=== PATIENT | male | born 1940 | race Caucasian/White ===

== ENCOUNTER 2017-02-04 13:43 | Inpatient (IN) | payer BC, OTHER ==
[~2017-02-04] VITALS: Ht 180.3 cm; Wt 82.6 kg
[~2017-02-04 13:43] MED LIST: ACET325T53 PO; ASPI81TA31 PO; BETA60OI3 TP; CLON0.1T PO; DILT300C36 PO; DOXY100T2 PO; ENAL20TA70 PO; ENOX40DI SQ; HYDR-3326 PO; HYDR20VI4 IV; ONDA2VIA IV; RASA1TAB PO; SIMV20TA6 PO
[2017-02-04] MEDS ORDERED: NITR50CA PO (14:02)
[2017-02-04] MEDS ORDERED: QUET25TA PO (14:02)
[2017-02-04 14:38] LABS: BASOPHILS % (AUTO) 0.5 % (0.0-2.0); EOSINOPHILS # (AUTO) 0.1 K/uL (0.0-0.7); EOSINOPHILS % (AUTO) 1.7 % (0.0-7.0); HEMATOCRIT 39.8 % (40-50); HEMOGLOBIN 13.3 G/DL (14.0-18.0); LYMPHOCYTES # (AUTO) 1.6 K/UL (0.8-4.8); LYMPHOCYTES % (AUTO) 23.7 % (20.5-51.5); MEAN CORPUSCULAR HEMOGLOBIN 32.4 UUG (27.0-31.0); MEAN CORPUSCULAR HGB CONC 34 g/dL (32.0-37.0); MEAN CORPUSCULAR VOLUME 96.7 FL (82.0-92.0); MONOCYTES # (AUTO) 0.4 K/UL (0.1-1.30); NEUTROPHILS # (AUTO) 4.5 K/UL (1.8-8.9); NEUTROPHILS % (AUTO) 68.1 % (38.5-71.5); PLATELET COUNT (AUTO) 228 K/UL (150-450); RED BLOOD CELL COUNT(AUTO) 4.12 MIL/UL (4.7-6.1); WHITE BLOOD COUNT (AUTO) 6.6 K/UL (4.0-11.2)
[2017-02-04 14:44] LABS: CARBON DIOXIDE 27 mmol/L (21-32); CHLORIDE 107 mmol/L (98-107); CREATININE 1.2 mg/dL (0.6-1.3); GLUCOSE 132 mg/dL (74-106); POTASSIUM 4.3 mmol/L (3.5-5.1); UREA NITROGEN, BLOOD 34 mg/dL (7-18)
[2017-02-04 14:50] LABS: ALANINE AMINOTRANSFERASE 26 U/L (16-63); ALKALINE PHOSPHATASE 84 U/L (50-136); ASPARTATE AMINOTRANSFERASE 23 U/L (15-37); BILIRUBIN,DIRECT 0.1 mg/dL (0.0-0.2); BILIRUBIN,TOTAL 0.4 mg/dL (0.2-1.0); TOTAL PROTEIN, SERUM 7.9 g/dL (6.4-8.2)
[2017-02-04 14:52] LABS: ETHANOL < 3 MG/DL (0-0)
[2017-02-04 15:03] LABS: *BILIRUBIN,URIN NEGATIVE (NEGATIVE); *BLOOD, URINE 3+ (NEGATIVE); *CLARITY,URINE CLOUDY (CLEAR); *KETONES,URINE NEGATIVE (NEGATIVE); *PROTEIN,URINE 1+ (NEGATIVE); *UROBILINOGEN,URINE 0.2 E.U./dl (NORMAL); LEUKOCYTE ESTERASE ,URINE 3+ (NEGATIVE); NITRITE, URINE NEGATIVE (NEGATIVE); PH,URINE 5.5 (5.0-8.0); UGLUCOSE NEGATIVE (NEGATIVE)
[2017-02-04 15:13] LABS: *COLOR,URINE DARK YELLOW (YELLOW)
[2017-02-04 15:14] LABS: MUCUS,URINE MODERATE /LPF (0-FEW); RBC,URINE 20-50 /HPF (0-3); SQUAMOUS EPITHELIAL CELL,UR FEW /HPF (NONE SEEN); WBC,URINE TNTC /HPF (0-3)
[2017-02-04 15:16] LABS: *AMPHETAMINE, URINE NEGATIVE (NEGATIVE); *BARBITURATE, URINE NEGATIVE (NEGATIVE); *CANNABINOID, URINE NEGATIVE (NEGATIVE); *COCCAINE, URINE NEGATIVE (NEGATIVE); *OPIATE, URINE NEGATIVE (NEGATIVE); *PHENCYCLIDINE SCREEN,URINE NEGATIVE (NEGATIVE)
--- NOTE | 2017-02-04 15:20 | NUR ---
CALLED PINKY FOR PET EVAL. ETA 1 HOUR.
[2017-02-04] MEDS ORDERED: CEPHALEXIN MONOHYDRATE 500 MG CAPSULE PO ONE (15:30)
[2017-02-04] MEDS ORDERED: CEPHALEXIN MONOHYDRATE 500 MG CAPSULE ONE (15:34)
--- NOTE | 2017-02-04 16:25 | NUR ---
Pt resting in gurney with NAD noted, psych eval pending.
--- NOTE | 2017-02-04 16:40 | NUR ---
Pinky here for psych eval.
--- NOTE | 2017-02-04 17:07 | NUR ---
Pt placed on 5150 hold (GD) by Joyce.
[2017-02-04] MEDS ORDERED: ATOR10TA PO (17:40)
[2017-02-04] MEDS ORDERED: DILT30TA35 PO (17:40)
--- NOTE | 2017-02-04 17:57 | NUR ---
Pt trans to MHU, NAD noted. Daughter and caregiver with pt.
[2017-02-04 18:05] VITALS: BP 152/75
[2017-02-04] MEDS ORDERED: LORAZEPAM 0.5 MG TABLET PO PRN (18:45)
[2017-02-04] MEDS ORDERED: ACETAMINOPHEN 325 MG TABLET PO PRN (18:45)
[2017-02-04] MEDS ORDERED: MAGNESIUM HYDROXIDE 30 ML LIQUID UDC PO PRN (18:45)
[2017-02-04] MEDS ORDERED: MAG HYDROX/AL HYDROX/SIMETH 30 ML LIQUID UDC PO PRN (18:45)
[2017-02-04 20:29] VITALS: BP 158/88
[2017-02-04] MEDS: LEVOFLOXACIN 500 MG TABLET PO SCH (22:05)
[2017-02-04] MEDS: ATORVASTATIN 10 MG TABLET PO SCH (22:05)
[2017-02-04] MEDS: TEMAZEPAM 7.5 MG CAPSULE PO PRN (22:05)
[2017-02-04] MEDS ORDERED: ATORVASTATIN 10 MG TABLET ONE (22:17)
[2017-02-04] MEDS ORDERED: LEVOFLOXACIN 500 MG TABLET ONE (22:17)
[2017-02-05 07:30] VITALS: BP 155/70
[2017-02-05] MEDS: ASPIRIN 81 MG TAB.CHEW PO SCH (08:53)
[2017-02-05] MEDS: AMLODIPINE 5 MG TABLET PO SCH (15:13)
[2017-02-05 16:54] VITALS: BP 159/86
[2017-02-05] MEDS: ATORVASTATIN 10 MG TABLET PO SCH (20:06)
[2017-02-05] MEDS: LEVOFLOXACIN 500 MG TABLET PO SCH (20:06)
[2017-02-05] MEDS: QUETIAPINE FUMARATE 25 MG TABLET PO SCH (20:07)
[2017-02-05 20:33] VITALS: BP 129/90
--- NOTE | 2017-02-06 07:30 | NUR ---
Sleeping, on moderate high back rest, comfortable
[2017-02-06 07:56] VITALS: BP 154/70
[2017-02-06] MEDS: AMLODIPINE 5 MG TABLET PO SCH (09:03)
[2017-02-06] MEDS: ASPIRIN 81 MG TAB.CHEW PO SCH (09:03)
[2017-02-06] MEDS: QUETIAPINE FUMARATE 25 MG TABLET PO SCH ×2 (09:03→20:08)
[2017-02-06] MEDS: DIVALPROEX SPRINKLE 125 MG CAP.SPRINK PO SCH ×2 (09:03→18:24)
--- NOTE | 2017-02-06 09:58 | NUR ---
UR Note: VALENTE faxed patient's most recent clinicals to YESSENIA Woods at [place] [[phone]; fax: [phone]]. Awaiting authorization.
[2017-02-06] MEDS ORDERED: Z GUARD REMEDY PASTE 57 GM TUBE TOP PRN (11:00)
--- NOTE | 2017-02-06 11:46 | NUR ---
Floor Installation Mechanic: VALENTE submitted Firearms Mental Health Report to [employer] on 02/06
--- NOTE | 2017-02-06 12:30 | NUR ---
Alert, oriented x 3. Assisted with lunch, henrie to consume 90 % of food served.
--- NOTE | 2017-02-06 14:49 | NUR ---
Initial DC Plan: Patient currently resides at home [[address] [place] [address]] with family. He also has a caregiver. SW will follow up with MD, patient, and patient's daughter Vicky [[phone]] to discuss most appropriate discharge plans. SW will form a safe and proper discharge.
[2017-02-06 16:49] VITALS: BP 131/70
--- NOTE | 2017-02-06 18:30 | NUR ---
Incontinence care done. Repositioned comfortably.
[2017-02-06 20:02] VITALS: BP 161/80
[2017-02-06] MEDS: ATORVASTATIN 10 MG TABLET PO SCH (20:08)
[2017-02-06] MEDS: LEVOFLOXACIN 500 MG TABLET PO SCH (20:11)
[2017-02-07 07:30] VITALS: BP 164/78
[2017-02-07] MEDS: DIVALPROEX SPRINKLE 125 MG CAP.SPRINK PO SCH ×2 (08:23→17:39)
[2017-02-07] MEDS: QUETIAPINE FUMARATE 25 MG TABLET PO SCH ×2 (08:23→20:38)
[2017-02-07] MEDS: ASPIRIN 81 MG TAB.CHEW PO SCH (08:23)
[2017-02-07] MEDS: AMLODIPINE 5 MG TABLET PO SCH (08:26)
--- NOTE | 2017-02-07 10:26 | NUR ---
UR Note: VALENTE faxed patient's most recent clinicals to YESSENIA Woods at [facility] [[phone]; fax: [phone]]. Awaiting authorization.
[2017-02-07 15:58] VITALS: BP 144/71
[2017-02-07] MEDS: PATIENT MAY USE OWN MED- MD OK PO SCH (17:47)
[2017-02-07] MEDS: LEVOFLOXACIN 500 MG TABLET PO SCH (20:38)
[2017-02-07] MEDS: ATORVASTATIN 10 MG TABLET PO SCH (20:38)
[2017-02-07 20:39] VITALS: BP 159/79
--- NOTE | 2017-02-08 06:30 | NUR ---
PATIENT ASLEEP IN BED. SLEPT WELL THROUGHOUT THE NIGHT. BED ALARM ON. ALL NEEDS ATTENDED. WILL CONTINUE TO MONITOR.
[2017-02-08 07:30] VITALS: BP 148/81
--- NOTE | 2017-02-08 08:37 | NUR ---
UR Note: VALENTE faxed patient's most recent clinicals to YESSENIA Woods at [facility] [[phone]; fax: [phone]]. Awaiting authorization.
[2017-02-08] MEDS ORDERED: AMLODIPINE 5 MG TABLET PO SCH (09:00)
[2017-02-08] MEDS: ASPIRIN 81 MG TAB.CHEW PO SCH (09:25)
[2017-02-08] MEDS: AMLODIPINE 10 MG TABLET PO SCH (09:25)
[2017-02-08] MEDS: QUETIAPINE FUMARATE 25 MG TABLET PO SCH ×2 (09:25→20:53)
[2017-02-08] MEDS: DIVALPROEX SPRINKLE 125 MG CAP.SPRINK PO SCH ×2 (09:25→17:29)
[2017-02-08] MEDS: PATIENT MAY USE OWN MED- MD OK PO SCH (09:26)
[2017-02-08 15:00] VITALS: BP 129/76
[2017-02-08 20:48] VITALS: BP 147/79
[2017-02-08] MEDS: ATORVASTATIN 10 MG TABLET PO SCH (20:52)
[2017-02-08] MEDS: LEVOFLOXACIN 500 MG TABLET PO SCH (20:53)
--- NOTE | 2017-02-08 22:00 | NUR ---
received to care, lying in bed, restless at times, but pleasant upon approach. compliant with medications and staff direction. as of 2199, he remains awake. no distress noted. will continue to monitor closely.
[2017-02-08] MEDS: TEMAZEPAM 7.5 MG CAPSULE PO PRN (23:51)
--- NOTE | 2017-02-08 23:51 | NUR ---
PRN restoril given for insomnia
--- NOTE | 2017-02-09 00:30 | NUR ---
appears to be asleep. no distress noted.
--- NOTE | 2017-02-09 06:00 | NUR ---
slept 8.5 hours. continues to sleep. no distress noted.
[2017-02-09 07:30] VITALS: BP 142/75
--- NOTE | 2017-02-09 08:19 | NUR ---
DC Note: Patient will be discharged home [[address],[place], [place],[address];[phone]] via private transportation at 12:00pm. VALENTE spoke with patient's daughter, iVcky [[phone]] who stated she will be picking him up today. Patient lives at home with his and 24 hour caregiver. Patient will follow-up with (hr systems analyst). VALENTE spoke with YESSENIA Quiros at [facility] [[phone]] who provided mental health referrals. Patient has an appointment with Dr. Seaman (Psychiatrist) on March 01 at 3:30pm [[address]. [address]. [place], [place]; [phone]]. Patient was also provided a referral for Nasreen Sneed (Therapist) [[phone]].
[2017-02-09 08:39] VITALS: BP 142/75
[2017-02-09] MEDS: DIVALPROEX SPRINKLE 125 MG CAP.SPRINK PO SCH (08:39)
[2017-02-09] MEDS: AMLODIPINE 10 MG TABLET PO SCH (08:39)
[2017-02-09] MEDS: ASPIRIN 81 MG TAB.CHEW PO SCH (08:39)
[2017-02-09] MEDS: QUETIAPINE FUMARATE 25 MG TABLET PO SCH (08:40)
[2017-02-09] MEDS: PATIENT MAY USE OWN MED- MD OK PO SCH (08:41)
--- NOTE | 2017-02-09 10:32 | NUR ---
PSYCH RX: CALLED IN 30 DAY SUPPLY OF PSYCH MEDS TO [facility] ([phone]), SPOKE WITH PHARMACIST.
--- NOTE | 2017-02-09 13:52 | NUR ---
1200 discharge instruction given to the patient manager care regarding medications to continue at home and prescription for psychiatric and medical given. Patient manager care verbalized understanding .1230 Brought patient to parking area per w/c stable condition, denies suicidal and homicidal thoughts.patient went home via private car with a manager care.
== END 2017-02-09 12:30 | disposition home or self-care (01) | DRG 885 ==
LOC: ER 13:43 → GPS 18:19
PROVIDERS: ADMIT Psychiatry & Neurology Psychiatry; ATTEND Internal Medicine
DX: F29 Unspecified psychosis not due to a substance or known physiological condition (principal); F02.81 Dementia in other diseases classified elsewhere, unspecified severity, with behavioral disturbance; G93.40 Encephalopathy, unspecified; G20 Parkinson's disease; N39.0 Urinary tract infection, site not specified; D53.9 Nutritional anemia, unspecified; F03.90 Unspecified dementia, unspecified severity, without behavioral disturbance, psychotic disturbance, mood disturbance, and anxiety; E78.5 Hyperlipidemia, unspecified; Z87.440 Personal history of urinary (tract) infections; Z91.14 Patient's other noncompliance with medication regimen; Z88.2 Allergy status to sulfonamides; I10 Essential (primary) hypertension; F32.9 Major depressive disorder, single episode, unspecified; Z79.899 Other long term (current) drug therapy; R73.03 Prediabetes
CPT/HCPCS: 36415; 70450; 71010; 80307; 84443; 85025; 87086; 93005; 97116; 97530; A4663; C1758; G0480

== ENCOUNTER 2017-04-18 19:05 | Inpatient (IN) | payer BC, OTHER ==
[~2017-04-18] VITALS: Ht 180.3 cm; Wt 90.7 kg
[~2017-04-18 19:05] MED LIST changes: +ATOR10TA PO; -BETA60OI3 TP; -CLON0.1T PO; -DILT300C36 PO; +DILT30TA35 PO; -DOXY100T2 PO; -ENOX40DI SQ; -HYDR-3326 PO; -HYDR20VI4 IV; +NITR50CA PO; -ONDA2VIA IV; -SIMV20TA6 PO
[2017-04-18 20:19] LABS: BASOPHILS % (AUTO) 0.6 % (0.0-2.0); EOSINOPHILS # (AUTO) 0.2 K/uL (0.0-0.7); EOSINOPHILS % (AUTO) 2.5 % (0.0-7.0); HEMATOCRIT 38.3 % (36.7-47.1); HEMOGLOBIN 12.8 g/dL (12.5-16.3); LYMPHOCYTES # (AUTO) 1.9 K/uL (20.0-40.0); MEAN CORPUSCULAR HEMOGLOBIN 32.7 uug (23.8-33.4); MEAN CORPUSCULAR HGB CONC 34 g/dL (32.5-36.3); MEAN CORPUSCULAR VOLUME 97.5 fL (73.0-96.2); MONOCYTES # (AUTO) 0.7 K/uL (2.0-10.0); MONOCYTES % (AUTO) 9.1 % (0.0-11.0); NEUTROPHILS # (AUTO) 4.5 K/uL (1.8-8.9); NEUTROPHILS % (AUTO) 61.8 % (38.5-71.5); PLATELET COUNT (AUTO) 203 K/uL (152-348); RED BLOOD CELL COUNT(AUTO) 3.93 MIL/uL (4.06-5.63); WHITE BLOOD COUNT (AUTO) 7.4 K/uL (3.6-10.2)
--- NOTE | 2017-04-18 20:20 | NUR ---
CHEST XRAY COMPLETED
[2017-04-18 20:35] LABS: ALANINE AMINOTRANSFERASE 30 U/L (16-63); ALKALINE PHOSPHATASE 93 U/L (50-136); ASPARTATE AMINOTRANSFERASE 19 U/L (15-37); BILIRUBIN,DIRECT < 0.1 mg/dL (0.0-0.2); BILIRUBIN,TOTAL 0.2 mg/dL (0.2-1.0); CARBON DIOXIDE 25 mmol/L (21-32); CHLORIDE 105 mmol/L (98-107); CREATININE 1.4 mg/dL (0.6-1.3); GLUCOSE 114 mg/dL (74-106); POTASSIUM 5.3 mmol/L (3.5-5.1); TOTAL PROTEIN, SERUM 7.8 g/dL (6.4-8.2); UREA NITROGEN, BLOOD 39 mg/dL (7-18)
--- NOTE | 2017-04-18 20:38 | NUR ---
CT NEGATIVE FOR CODE STROKE
[2017-04-18 20:47] LABS: CHOLESTEROL 186 mg/dL (<200); TRIGLYCERIDES 93 MG/DL (30-150)
[2017-04-18 20:48] LABS: HDL CHOLESTEROL 60 mg/dL (40-60)
[2017-04-18] MEDS ORDERED: CLONIDINE HCL 0.1 MG TABLET PO ONE (22:00)
[2017-04-18] MEDS: ASPIRIN EC 81 MG TABLET.DR PO SCH (22:28)
[2017-04-18] MEDS ORDERED: CLONIDINE HCL 0.1 MG TABLET ONE (22:43)
[2017-04-18] MEDS ORDERED: ASPIRIN EC 81 MG TABLET.DR PO ONE (22:43)
[2017-04-18] MEDS ORDERED: RASA1TAB4 PO (23:29)
[2017-04-18] MEDS ORDERED: DIVA125T3 PO (23:29)
[2017-04-18] MEDS ORDERED: ASPI81TA31 PO (23:29)
[2017-04-18] MEDS ORDERED: ENAL20TA PO (23:29)
[2017-04-18] MEDS ORDERED: ATOR10TA PO (23:29)
--- NOTE | 2017-04-18 23:30 | NUR ---
CAREGIVER PROVIDED PT CONTACT OF PT'S DAUGHTER: ARNOLD MELENDEZ [phone]
--- NOTE | 2017-04-19 01:00 | NUR ---
PT RESTING IN A POSITION OF COMFORT. NO ACUTE DISTRESS NOTED AT THIS TIME
--- NOTE | 2017-04-19 02:20 | NUR ---
Note kanu in ED - 04/19/17 at 0253 by ONUR PT TAKEN UPSTAIRS TO TELE. PER SOFTWARE SALES MANAGER, PT IS UNABLE TO BE ACCOMODATED IN ROOM 201B DUE TO CURRENT ISOLATION STATUS OF ROOMMATE. PER INPATIENT CHARGE NURSE INSTRUCTIONS, PT RETURNED TO ER ROOM 1B UNDER SUPERVISION OF ER STAFF. MACHINE STRAP BUCKLER NOTED. GRIEVANCE MADE BY FAMILY, AND REQUEST FOLLOW UP DUE TO "UNPROFESSIONAL BEHAVIOR OF INPATIENT STAFF."
--- NOTE | 2017-04-19 02:30 | NUR ---
PATIENT ADMITTED TO ROOM 201B,PATIENT ALERT,ABLE TO ANSWER QUESTIONS APPROPRIATELY,SPEECH IS SLURRED, PATIENT EXPLAINED DUE TO PARKINSON,NURSING SWALLOW SCREEN DONE, PATIENT ABLE TO SWALLOW WATER SLOWLY,ASPIRATION PRECAUTION, KEEP NPO PER MD ORDERS.
--- NOTE | 2017-04-19 02:54 | NUR ---
PT TAKEN UPSTAIRS TO TELE. PER HAZMAT TANKER DRIVER, PT IS UNABLE TO BE ACCOMODATED IN ROOM 201B DUE TO CURRENT ISOLATION STATUS OF ROOMMATE. PER INPATIENT CHARGE NURSE INSTRUCTIONS, PT RETURNED TO ER ROOM 1B UNDER SUPERVISION OF ER STAFF. COMMANDER INTERNAL AFFAIRS NOTED.
[2017-04-19 04:00] VITALS: BP 154/55
[2017-04-19] MEDS ORDERED: Z GUARD REMEDY PASTE 57 GM TUBE TOP PRN (04:15)
--- NOTE | 2017-04-19 06:00 | NUR ---
patient sleeping no acute change in condition, sinus bradycardia on monitor,npo for st eval this am, fall precautions bed alarm on.
[2017-04-19 07:27] LABS: BASOPHILS % (AUTO) 0.8 % (0.0-2.0); EOSINOPHILS # (AUTO) 0.2 K/uL (0.0-0.7); EOSINOPHILS % (AUTO) 3.4 % (0.0-7.0); HEMATOCRIT 35.3 % (36.7-47.1); HEMOGLOBIN 11.8 g/dL (12.5-16.3); LYMPHOCYTES # (AUTO) 1.3 K/uL (20.0-40.0); LYMPHOCYTES % (AUTO) 24.8 % (20.5-51.5); MEAN CORPUSCULAR HEMOGLOBIN 32.3 uug (23.8-33.4); MEAN CORPUSCULAR HGB CONC 34 g/dL (32.5-36.3); MEAN CORPUSCULAR VOLUME 96.3 fL (73.0-96.2); MONOCYTES # (AUTO) 0.5 K/uL (2.0-10.0); MONOCYTES % (AUTO) 8.9 % (0.0-11.0); NEUTROPHILS # (AUTO) 3.3 K/uL (1.8-8.9); NEUTROPHILS % (AUTO) 62.1 % (38.5-71.5); PLATELET COUNT (AUTO) 208 K/uL (152-348); RED BLOOD CELL COUNT(AUTO) 3.66 MIL/uL (4.06-5.63)
[2017-04-19 07:33] LABS: CARBON DIOXIDE 27 mmol/L (21-32); CHLORIDE 107 mmol/L (98-107); CHOLESTEROL 161 mg/dL (<200); CREATININE 1.1 mg/dL (0.6-1.3); GLUCOSE 99 mg/dL (74-106); HDL CHOLESTEROL 60 mg/dL (40-60); POTASSIUM 4.4 mmol/L (3.5-5.1); TRIGLYCERIDES 47 MG/DL (30-150); UREA NITROGEN, BLOOD 32 mg/dL (7-18)
--- NOTE | 2017-04-19 07:39 | NUR ---
patient sleeping no acute change in condition, sinus bradycardia on monitor,npo for st eval this am, fall precautions bed alarm on.call light with in reach
[2017-04-19 07:43] LABS: WHITE BLOOD COUNT (AUTO) 5.4 K/uL (3.6-10.2)
[2017-04-19] MEDS: DIVALPROEX 125 MG TABLET.DR PO SCH (08:52)
[2017-04-19] MEDS: ASPIRIN EC 81 MG TABLET.DR PO SCH (08:52)
[2017-04-19] MEDS: ENALAPRIL 10 MG TABLET PO SCH (08:53)
[2017-04-19] MEDS ORDERED: Medication Not On Formulary EA (Enalapril Maleate (Vasotec) 20 MG) PO SCH (09:00)
[2017-04-19] MEDS ORDERED: Medication Not On Formulary EA (Rasagiline Mesylate 1 MG) PO SCH (09:00)
[2017-04-19] MEDS ORDERED: DILTIAZEM HCL 30 MG TABLET PO SCH (09:00)
[2017-04-19] MEDS: ASPIRIN 81 MG TAB.CHEW PO SCH (09:00)
[2017-04-19 10:53] VITALS: BP 98/63
--- NOTE | 2017-04-19 13:30 | NUR ---
swallow eval done
[2017-04-19] MEDS ORDERED: DILT300C36 PO (13:44)
--- NOTE | 2017-04-19 14:00 | NUR ---
pt eating lunch at this time by him self no s/s of aspiration noted rn progressive care at bed side.
[2017-04-19] MEDS: DILTIAZEM HCL CD 300 MG CAP.SR.24H PO SCH (14:59)
[2017-04-19 15:11] VITALS: BP 138/48
[2017-04-19] MEDS: RASAGILINE 1 MG PO SCH (15:52)
[2017-04-19] MEDS: CARBIDOPA/LEVODOPA 25-100MG TABLET PO SCH (17:06)
[2017-04-19 19:31] LABS: *BILIRUBIN,URIN NEGATIVE (NEGATIVE); *BLOOD, URINE 2+ (NEGATIVE); *CLARITY,URINE CLOUDY (CLEAR); *COLOR,URINE YELLOW (YELLOW); *KETONES,URINE NEGATIVE (NEGATIVE); *PROTEIN,URINE 1+ (NEGATIVE); *UROBILINOGEN,URINE 0.2 E.U./dl (NORMAL); LEUKOCYTE ESTERASE ,URINE 3+ (NEGATIVE); NITRITE, URINE POSITIVE (NEGATIVE); UGLUCOSE NEGATIVE (NEGATIVE)
[2017-04-19 19:41] LABS: BACTERIA,URINE MANY /HPF (NONE SEEN); SQUAMOUS EPITHELIAL CELL,UR FEW /HPF (NONE SEEN); WBC,URINE 80-100 /HPF (0-3)
--- NOTE | 2017-04-19 20:00 | NUR ---
RECEIVED PATIENT AWAKE IN BED. A/O X4. DENIES PAIN OR DISCOMFORT. NO RESP. DISTRESS NOTED. VSS. H/L INTACT AND PATENT X2, INTACT AND PATENT. CALL LIGHT IN REACH. ALL NEEDS ATTENDED. WILL CONTINUE TO MONITOR.
[2017-04-19 20:34] VITALS: BP 140/59
[2017-04-19] MEDS: ATORVASTATIN 10 MG TABLET PO SCH (20:44)
[2017-04-20 04:19] VITALS: BP_SYST 144; BP_SYST 168; BP_DIAS 70; BP_DIAS 84
--- NOTE | 2017-04-20 06:50 | NUR ---
PATIENT AWAKE IN BED. SLEPT WELL. DENIES PAIN. CALL LIGHT IN REACH. ALL NEEDS ATTENDED. WILL CONTINUE TO MONITOR.
--- NOTE | 2017-04-20 07:57 | NUR ---
PT RECEIVED IN BED SLEEPING.V/S ARE STABLE ,NO C/O PAIN NOTED.CALL LIGHT WITH IN REACH.
[2017-04-20] MEDS: ASPIRIN 81 MG TAB.CHEW PO SCH (08:23)
[2017-04-20] MEDS: DIVALPROEX 125 MG TABLET.DR PO SCH (08:23)
[2017-04-20] MEDS: CARBIDOPA/LEVODOPA 25-100MG TABLET PO SCH ×2 (08:23→16:05)
[2017-04-20] MEDS: ENALAPRIL 10 MG TABLET PO SCH (08:23)
[2017-04-20] MEDS: DILTIAZEM HCL CD 300 MG CAP.SR.24H PO SCH (08:24)
[2017-04-20] MEDS: RASAGILINE 1 MG PO SCH (08:24)
[2017-04-20] MEDS ORDERED: DILTIAZEM HCL CD 300 MG CAP.SR.24H PO SCH (09:00)
[2017-04-20 11:12] VITALS: BP 146/62
[2017-04-20] MEDS: CEFTRIAXONE 1 G in IV DEXTROSE 5% 50 ML IV SCH (11:49)
--- NOTE | 2017-04-20 12:30 | NUR ---
pt eating lunch at this time by him self no s/s of aspiration noted day care home mother at bed side.
[2017-04-20 14:58] VITALS: BP 145/78
[2017-04-20 15:02] VITALS: BP 129/33
--- NOTE | 2017-04-20 18:13 | NUR ---
patient sleeping no acute change in condition, , fall precautions bed alarm on.call light with in reach
[2017-04-20 20:00] VITALS: BP 152/56
--- NOTE | 2017-04-20 20:00 | NUR ---
RECEIVED PATIENT AWAKE IN BED WITH DAUGHTER AT BEDSIDE. PATIENT IS A/O X3. DENIES PAIN OR DISCOMFORT. NO RESP. DISTRESS NOTED. H/L INTACT AND PATENT. BILATERAL DVT PUMPS IN PLACE. BED ALARM ON. CALL LIGHT IN REACH. ALL NEEDS ATTENDED.
[2017-04-20] MEDS: ATORVASTATIN 10 MG TABLET PO SCH (20:05)
[2017-04-21 04:00] VITALS: BP 153/63
--- NOTE | 2017-04-21 06:32 | NUR ---
PATIENT AWAKE IN BED. REPOSITIONED TO SIDE. SLEPT WELL THROUGHOUT THE NIGHT. DENIES PAIN OR DISCOMFORT. BED ALARM ON. CALL LIGHT IN REACH. ALL NEEDS ATTENDED. WILL CONTINUE TO MONITOR AND ASSESS.
[2017-04-21 07:35] LABS: BASOPHILS % (AUTO) 0.7 % (0.0-2.0); EOSINOPHILS # (AUTO) 0.1 K/uL (0.0-0.7); EOSINOPHILS % (AUTO) 2.2 % (0.0-7.0); HEMATOCRIT 36.1 % (36.7-47.1); HEMOGLOBIN 12.3 g/dL (12.5-16.3); LYMPHOCYTES # (AUTO) 1.5 K/uL (20.0-40.0); LYMPHOCYTES % (AUTO) 25.6 % (20.5-51.5); MEAN CORPUSCULAR HEMOGLOBIN 32.5 uug (23.8-33.4); MEAN CORPUSCULAR HGB CONC 34 g/dL (32.5-36.3); MEAN CORPUSCULAR VOLUME 95.8 fL (73.0-96.2); MONOCYTES # (AUTO) 0.5 K/uL (2.0-10.0); MONOCYTES % (AUTO) 8.5 % (0.0-11.0); NEUTROPHILS # (AUTO) 3.6 K/uL (1.8-8.9); PLATELET COUNT (AUTO) 208 K/uL (152-348); RED BLOOD CELL COUNT(AUTO) 3.77 MIL/uL (4.06-5.63); WHITE BLOOD COUNT (AUTO) 5.7 K/uL (3.6-10.2)
[2017-04-21 07:40] LABS: CARBON DIOXIDE 25 mmol/L (21-32); CHLORIDE 104 mmol/L (98-107); CREATININE 1.1 mg/dL (0.6-1.3); GLUCOSE 100 mg/dL (74-106); POTASSIUM 4.2 mmol/L (3.5-5.1); UREA NITROGEN, BLOOD 23 mg/dL (7-18)
[2017-04-21] MEDS: ASPIRIN 81 MG TAB.CHEW PO SCH (09:18)
[2017-04-21] MEDS: DILTIAZEM HCL CD 300 MG CAP.SR.24H PO SCH (09:19)
[2017-04-21] MEDS: DIVALPROEX 125 MG TABLET.DR PO SCH (09:19)
[2017-04-21] MEDS: CARBIDOPA/LEVODOPA 25-100MG TABLET PO SCH ×2 (09:19→16:50)
[2017-04-21] MEDS: ENALAPRIL 10 MG TABLET PO SCH (09:19)
[2017-04-21] MEDS: RASAGILINE 1 MG PO SCH (09:33)
[2017-04-21] MEDS: CEFTRIAXONE 1 G in IV DEXTROSE 5% 50 ML IV SCH (11:14)
[2017-04-21 11:30] VITALS: BP 171/67
[2017-04-21 12:19] VITALS: BP 146/63
[2017-04-21 16:18] VITALS: BP 139/64
--- NOTE | 2017-04-21 17:52 | NUR ---
PT IS CALM COOPERATIVE, STABLE VITAL SIGNS. OBSERVED RESTING IN ROOM. PLAN FOR TODAY IS TO D/C.
[2017-04-21] MEDS ORDERED: CARB1TAB21 PO (18:08)
[2017-04-21] MEDS ORDERED: CEPH-570 PO (18:15)
--- NOTE | 2017-04-21 19:40 | NUR ---
PT D/C HOME WITH ALL BELONGINGS, VALUABLES, AND EXITCARE PACKET. IV AND ID BAND REMOVED. PT STABLE TO D/C. PT LEFT VIA UBER.
[2017-04-21 19:44] VITALS: BP 153/69
== END 2017-04-21 19:57 | disposition home or self-care (01) | DRG 69 ==
LOC: ER 19:05 → TELE 04-19 01:38 → MED 04-19 17:30
PROVIDERS: ADMIT Nurse Practitioner Acute Care; ATTEND Internal Medicine
DX: G45.9 Transient cerebral ischemic attack, unspecified (principal); N17.0 Acute kidney failure with tubular necrosis; G93.40 Encephalopathy, unspecified; D68.59 Other primary thrombophilia; N39.0 Urinary tract infection, site not specified; D53.9 Nutritional anemia, unspecified; G90.8 Other disorders of autonomic nervous system; F02.80 Dementia in other diseases classified elsewhere, unspecified severity, without behavioral disturbance, psychotic disturbance, mood disturbance, and anxiety; G31.83 Neurocognitive disorder with Lewy bodies; E78.5 Hyperlipidemia, unspecified; Z79.899 Other long term (current) drug therapy; Z79.82 Long term (current) use of aspirin; Z74.09 Other reduced mobility; Z82.3 Family history of stroke; Z83.3 Family history of diabetes mellitus; I11.9 Hypertensive heart disease without heart failure; I51.9 Heart disease, unspecified
CPT/HCPCS: 36415; 70030-TC; 70450; 71045; 85025; 85730; 87077; 87086; 92610; 93005; 93307; 97116; 97165; 97530; 97535; A4663; J0696; J3490; J7060

== ENCOUNTER 2017-08-03 08:51 | Inpatient (IN) | payer BC, OTHER ==
[~2017-08-03] VITALS: Ht 180.3 cm; Wt 81.6 kg
[~2017-08-03 08:51] MED LIST changes: +CARB1TAB21 PO; +CEPH-570 PO; +DILT300C36 PO; -DILT30TA35 PO; +DIVA125T3 PO; -NITR50CA PO; +RASA1TAB4 PO
[2017-08-03] MEDS ORDERED: IV NORMAL SALINE 1000 ML BAG IV ONE (09:30)
[2017-08-03] MEDS ORDERED: CEFTRIAXONE 1 G in IV DEXTROSE 5% 50 ML IV ONE (09:30)
[2017-08-03] MEDS ORDERED: GENTAMICIN SULFATE INJ 80 MG in IV DEXTROSE 5% 100 ML IV ONE (09:30)
[2017-08-03 09:43] LABS: BASOPHILS % (AUTO) 0.9 % (0.0-2.0); EOSINOPHILS # (AUTO) 0.3 K/uL (0.0-0.7); EOSINOPHILS % (AUTO) 4.8 % (0.0-7.0); HEMOGLOBIN 11.7 g/dL (12.5-16.3); LYMPHOCYTES # (AUTO) 1.1 K/uL (20.0-40.0); LYMPHOCYTES % (AUTO) 20.1 % (20.5-51.5); MEAN CORPUSCULAR HEMOGLOBIN 31.6 uug (23.8-33.4); MEAN CORPUSCULAR HGB CONC 33 g/dL (32.5-36.3); MEAN CORPUSCULAR VOLUME 94.7 fL (73.0-96.2); MONOCYTES # (AUTO) 0.5 K/uL (2.0-10.0); MONOCYTES % (AUTO) 8.6 % (0.0-11.0); NEUTROPHILS # (AUTO) 3.6 K/uL (1.8-8.9); NEUTROPHILS % (AUTO) 65.6 % (38.5-71.5); PLATELET COUNT (AUTO) 206 K/uL (152-348); WHITE BLOOD COUNT (AUTO) 5.5 K/uL (3.6-10.2)
[2017-08-03] MEDS ORDERED: CEFTRIAXONE 1 G VIAL ONE (09:46)
[2017-08-03] MEDS ORDERED: GENTAMICIN SULFATE 80 MG/2 ML VIAL ONE (09:47)
[2017-08-03] MEDS ORDERED: GENTAMICIN SULFATE 20 MG/2 ML VIAL IV ONE (09:47)
[2017-08-03 09:48] LABS: CARBON DIOXIDE 28 mmol/L (21-32); CHLORIDE 107 mmol/L (98-107); CREATININE 1.3 mg/dL (0.6-1.3); GLUCOSE 110 mg/dL (74-106); POTASSIUM 4.5 mmol/L (3.5-5.1); UREA NITROGEN, BLOOD 39 mg/dL (7-18)
[2017-08-03 10:00] LABS: ALANINE AMINOTRANSFERASE 11 U/L (16-63); ALKALINE PHOSPHATASE 86 U/L (50-136); ASPARTATE AMINOTRANSFERASE 18 U/L (15-37); BILIRUBIN,DIRECT 0.1 mg/dL (0.0-0.2); BILIRUBIN,TOTAL 0.5 mg/dL (0.2-1.0); TOTAL PROTEIN, SERUM 7.6 g/dL (6.4-8.2)
[2017-08-03 11:07] LABS: *BILIRUBIN,URIN NEGATIVE (NEGATIVE); *BLOOD, URINE 3+ (NEGATIVE); *CLARITY,URINE CLOUDY (CLEAR); *COLOR,URINE YELLOW (YELLOW); *KETONES,URINE NEGATIVE (NEGATIVE); *PROTEIN,URINE 2+ (NEGATIVE); *UROBILINOGEN,URINE 0.2 E.U./dl (NORMAL); LEUKOCYTE ESTERASE ,URINE 3+ (NEGATIVE); NITRITE, URINE POSITIVE (NEGATIVE); PH,URINE 6.5 (5.0-8.0); UGLUCOSE NEGATIVE (NEGATIVE)
[2017-08-03 11:40] LABS: RBC,URINE 20-50 /HPF (0-3); WBC,URINE TNTC /HPF (0-3)
[2017-08-03 11:42] LABS: BACTERIA,URINE MANY /HPF (NONE SEEN); SQUAMOUS EPITHELIAL CELL,UR NONE SEEN /HPF (NONE SEEN)
[2017-08-03] MEDS ORDERED: ONDANSETRON 4 MG/2 ML VIAL IV PRN (14:00)
[2017-08-03] MEDS ORDERED: ACETAMINOPHEN 650 MG SUPP.RECT RC PRN (14:00)
[2017-08-03] MEDS ORDERED: HYDROCODONE/APAP 5-325MG TABLET PO PRN (14:00)
[2017-08-03 15:05] VITALS: BP 116/59
[2017-08-03] MEDS: IV NS 1000 ML 1,000 ML IV PRN (16:15)
[2017-08-03] MEDS: CARBIDOPA/LEVODOPA 25-100MG TABLET PO SCH (16:43)
[2017-08-03] MEDS: ATORVASTATIN 10 MG TABLET PO SCH (20:48)
[2017-08-03] MEDS: CLOTRIMAZOLE/BETAMET DIPROP CREAM 15 GM TUBE TOP SCH ×2 (20:48→20:49)
[2017-08-03 21:01] VITALS: BP 153/43
[2017-08-04 04:00] VITALS: BP 130/63
[2017-08-04] MEDS: IV NS 1000 ML 1,000 ML IV PRN ×2 (05:12→23:17)
[2017-08-04] MEDS: PANTOPRAZOLE SODIUM 40 MG TABLET.DR PO SCH (06:56)
[2017-08-04 07:05] LABS: CARBON DIOXIDE 25 mmol/L (21-32); CHLORIDE 108 mmol/L (98-107); CHOLESTEROL 146 mg/dL (<200); CREATININE 1.1 mg/dL (0.6-1.3); GLUCOSE 86 mg/dL (74-106); HDL CHOLESTEROL 59 mg/dL (40-60); MAGNESIUM 1.7 mg/dL (1.8-2.4); PHOSPHOROUS 2.5 mg/dL (2.5-4.9); POTASSIUM 4.5 mmol/L (3.5-5.1); TRIGLYCERIDES 44 MG/DL (30-150); UREA NITROGEN, BLOOD 25 mg/dL (7-18)
[2017-08-04 07:17] LABS: HEMATOCRIT 34.2 % (36.7-47.1); HEMOGLOBIN 11.6 g/dL (12.5-16.3); WHITE BLOOD COUNT (AUTO) 5.8 K/uL (3.6-10.2)
[2017-08-04 07:18] LABS: BASOPHILS % (AUTO) 0.6 % (0.0-2.0); EOSINOPHILS # (AUTO) 0.2 K/uL (0.0-0.7); LYMPHOCYTES # (AUTO) 1.3 K/uL (20.0-40.0); LYMPHOCYTES % (AUTO) 22.5 % (20.5-51.5); MEAN CORPUSCULAR HEMOGLOBIN 32.2 uug (23.8-33.4); MEAN CORPUSCULAR HGB CONC 34 g/dL (32.5-36.3); MONOCYTES # (AUTO) 0.5 K/uL (2.0-10.0); NEUTROPHILS # (AUTO) 3.8 K/uL (1.8-8.9); NEUTROPHILS % (AUTO) 64.9 % (38.5-71.5); PLATELET COUNT (AUTO) 195 K/uL (152-348)
[2017-08-04 07:22] LABS: THYROID STIMULATING HORMONE 1.383 mIU/mL (0.358-3.740)
[2017-08-04] MEDS: CLOTRIMAZOLE/BETAMET DIPROP CREAM 15 GM TUBE TOP SCH ×2 (08:17→20:40)
[2017-08-04] MEDS: DIVALPROEX 125 MG TABLET.DR PO SCH (08:18)
[2017-08-04] MEDS: Z GUARD REMEDY PASTE 57 GM TUBE TOP PRN (08:18)
[2017-08-04] MEDS: DILTIAZEM HCL CD 300 MG CAP.SR.24H PO SCH (08:19)
[2017-08-04] MEDS: ACETAMINOPHEN 325 MG TABLET PO PRN (08:19)
[2017-08-04] MEDS: CARBIDOPA/LEVODOPA 25-100MG TABLET PO SCH ×2 (08:19→17:13)
[2017-08-04] MEDS: ASPIRIN 81 MG TAB.CHEW PO SCH (08:19)
[2017-08-04] MEDS: AZILECT 1MG TABLET PO SCH (08:20)
[2017-08-04] MEDS: CEFTRIAXONE 1 G in IV DEXTROSE 5% 50 ML IV SCH (09:23)
[2017-08-04] MEDS ORDERED: MAGNESIUM OXIDE 400 MG TABLET PO ONE (11:15)
[2017-08-04 11:36] VITALS: BP 126/63
[2017-08-04 15:36] VITALS: BP 130/73
[2017-08-04 20:21] VITALS: BP 125/65
[2017-08-04] MEDS: ATORVASTATIN 10 MG TABLET PO SCH (20:39)
[2017-08-05 04:00] VITALS: BP 178/61
[2017-08-05 06:19] LABS: CARBON DIOXIDE 23 mmol/L (21-32); CHLORIDE 106 mmol/L (98-107); CREATININE 1.1 mg/dL (0.6-1.3); GLUCOSE 95 mg/dL (74-106); MAGNESIUM 1.8 mg/dL (1.8-2.4); POTASSIUM 4.4 mmol/L (3.5-5.1); UREA NITROGEN, BLOOD 24 mg/dL (7-18)
[2017-08-05] MEDS: PANTOPRAZOLE SODIUM 40 MG TABLET.DR PO SCH (06:49)
[2017-08-05] MEDS: ASPIRIN 81 MG TAB.CHEW PO SCH (08:00)
[2017-08-05] MEDS: DIVALPROEX 125 MG TABLET.DR PO SCH (08:00)
[2017-08-05] MEDS: CARBIDOPA/LEVODOPA 25-100MG TABLET PO SCH ×2 (08:00→16:33)
[2017-08-05] MEDS: DILTIAZEM HCL CD 300 MG CAP.SR.24H PO SCH (08:01)
[2017-08-05] MEDS: CLOTRIMAZOLE/BETAMET DIPROP CREAM 15 GM TUBE TOP SCH ×2 (08:02→20:31)
[2017-08-05] MEDS: Z GUARD REMEDY PASTE 57 GM TUBE TOP PRN (08:02)
[2017-08-05] MEDS: AZILECT 1MG TABLET PO SCH (08:20)
[2017-08-05] MEDS: CEFTRIAXONE 1 G in IV DEXTROSE 5% 50 ML IV SCH (09:38)
[2017-08-05 11:36] VITALS: BP 181/73
[2017-08-05 12:30] VITALS: BP 117/69
[2017-08-05] MEDS: IV NS 1000 ML 1,000 ML IV PRN (13:45)
[2017-08-05 15:26] VITALS: BP 155/56
[2017-08-05 20:00] VITALS: BP 154/77
[2017-08-05] MEDS: ATORVASTATIN 10 MG TABLET PO SCH (20:26)
[2017-08-05] MEDS: TEMAZEPAM 15 MG CAPSULE PO PRN ×2 (20:27→21:44)
[2017-08-05] MEDS: ACETAMINOPHEN 325 MG TABLET PO PRN (20:27)
[2017-08-06 04:00] VITALS: BP 140/84
[2017-08-06] MEDS: PANTOPRAZOLE SODIUM 40 MG TABLET.DR PO SCH (06:19)
[2017-08-06] MEDS: DILTIAZEM HCL CD 300 MG CAP.SR.24H PO SCH (08:56)
[2017-08-06] MEDS: AZILECT 1MG TABLET PO SCH (08:56)
[2017-08-06] MEDS: ASPIRIN 81 MG TAB.CHEW PO SCH (08:56)
[2017-08-06] MEDS: CARBIDOPA/LEVODOPA 25-100MG TABLET PO SCH ×2 (08:56→17:03)
[2017-08-06] MEDS: DIVALPROEX 125 MG TABLET.DR PO SCH (08:56)
[2017-08-06] MEDS: CEFTRIAXONE 1 G in IV DEXTROSE 5% 50 ML IV SCH (08:57)
[2017-08-06] MEDS: CLOTRIMAZOLE/BETAMET DIPROP CREAM 15 GM TUBE TOP SCH (08:57)
[2017-08-06 09:40] VITALS: BP 176/66
[2017-08-06 11:41] VITALS: BP 163/60
[2017-08-06] MEDS: IV NS 1000 ML 1,000 ML IV PRN (13:09)
[2017-08-06 15:53] VITALS: BP 164/86
== END 2017-08-06 18:20 | disposition home or self-care (01) | DRG 682 ==
LOC: ER 08:51 → MED 13:47
PROVIDERS: ADMIT Internal Medicine; ATTEND Nurse Practitioner Acute Care
DX: N17.0 Acute kidney failure with tubular necrosis (principal); G92 Toxic encephalopathy; G20 Parkinson's disease; D68.59 Other primary thrombophilia; E86.0 Dehydration; N39.0 Urinary tract infection, site not specified; B96.89 Other specified bacterial agents as the cause of diseases classified elsewhere; Z88.2 Allergy status to sulfonamides; Z79.82 Long term (current) use of aspirin; Z86.73 Personal history of transient ischemic attack (TIA), and cerebral infarction without residual deficits; Z83.3 Family history of diabetes mellitus; Z82.3 Family history of stroke; Z99.3 Dependence on wheelchair; D63.8 Anemia in other chronic diseases classified elsewhere; E78.5 Hyperlipidemia, unspecified; R21 Rash and other nonspecific skin eruption; I70.0 Atherosclerosis of aorta; I11.9 Hypertensive heart disease without heart failure; I13.10 Hypertensive heart and chronic kidney disease without heart failure, with stage 1 through stage 4 chronic kidney disease, or unspecified chronic kidney disease; N18.9 Chronic kidney disease, unspecified; R29.810 Facial weakness
CPT/HCPCS: 36415; 70030-TC; 71045; 83605; 83735; 84100; 84443; 85025; 85730; 87040; 87086; 92526; 92610; 93005; 97116; 97165; 97530; A4663; J0696; J1580; J7030; J7040; J7060

== ENCOUNTER 2017-10-30 07:43 | Inpatient (IN) | payer OTHER ==
[~2017-10-30] VITALS: Ht 180.3 cm; Wt 81.6 kg
[~2017-10-30 07:43] MED LIST changes: -ACET325T53 PO; -CEPH-570 PO; -DIVA125T3 PO; +DIVA125T32 PO; -ENAL20TA70 PO
[2017-10-30 08:49] LABS: BASOPHILS % (AUTO) 0.5 % (0.0-2.0); EOSINOPHILS # (AUTO) 0.1 K/uL (0.0-0.7); EOSINOPHILS % (AUTO) 1.7 % (0.0-7.0); HEMATOCRIT 36.5 % (36.7-47.1); HEMOGLOBIN 12.2 g/dL (12.5-16.3); LYMPHOCYTES # (AUTO) 0.5 K/uL (20.0-40.0); MEAN CORPUSCULAR HGB CONC 34 g/dL (32.5-36.3); MEAN CORPUSCULAR VOLUME 95.3 fL (73.0-96.2); MONOCYTES # (AUTO) 0.5 K/uL (2.0-10.0); MONOCYTES % (AUTO) 8.1 % (0.0-11.0); NEUTROPHILS # (AUTO) 5.2 K/uL (1.8-8.9); NEUTROPHILS % (AUTO) 81.7 % (38.5-71.5); PLATELET COUNT (AUTO) 188 K/uL (152-348); RED BLOOD CELL COUNT(AUTO) 3.82 MIL/uL (4.06-5.63); WHITE BLOOD COUNT (AUTO) 6.4 K/uL (3.6-10.2)
[2017-10-30 08:51] LABS: *BILIRUBIN,URIN NEGATIVE (NEGATIVE); *BLOOD, URINE 2+ (NEGATIVE); *CLARITY,URINE CLOUDY (CLEAR); *COLOR,URINE YELLOW (YELLOW); *KETONES,URINE NEGATIVE (NEGATIVE); *PROTEIN,URINE 3+ (NEGATIVE); *UROBILINOGEN,URINE 0.2 E.U./dl (NORMAL); LEUKOCYTE ESTERASE ,URINE 1+ (NEGATIVE); NITRITE, URINE POSITIVE (NEGATIVE); PH,URINE 6.5 (5.0-8.0); UGLUCOSE NEGATIVE (NEGATIVE)
[2017-10-30 08:51] LABS: CARBON DIOXIDE 26 mmol/L (21-32); CHLORIDE 106 mmol/L (98-107); CREATININE 1.5 mg/dL (0.6-1.3); GLUCOSE 105 mg/dL (74-106); POTASSIUM 4.6 mmol/L (3.5-5.1); UREA NITROGEN, BLOOD 40 mg/dL (7-18)
[2017-10-30 08:57] LABS: ALANINE AMINOTRANSFERASE 16 U/L (16-63); ALKALINE PHOSPHATASE 92 U/L (50-136); ASPARTATE AMINOTRANSFERASE 35 U/L (15-37); BILIRUBIN,TOTAL 0.4 mg/dL (0.2-1.0); CREATINE KINASE, TOTAL 446 U/L (39-308)
[2017-10-30 09:04] LABS: BACTERIA,URINE MANY /HPF (NONE SEEN); SQUAMOUS EPITHELIAL CELL,UR FEW /HPF (NONE SEEN)
--- NOTE | 2017-10-30 09:25 | NUR ---
Per pt to be admitted to tele, called tele floor for bed assignment, was told charge nurse is in a meeting and will call back when she returns.
[2017-10-30] MEDS ORDERED: CEFTRIAXONE 1 G in IV DEXTROSE 5% 50 ML IV ONE (09:26)
[2017-10-30] MEDS ORDERED: IV NS 1000 ML 1,000 ML IV ONE (09:30)
--- NOTE | 2017-10-30 09:32 | NUR ---
Patient is now waiting for bed & nurse assignment at this time. 2nd floor pneumatic tester notified.
[2017-10-30] MEDS ORDERED: CEFTRIAXONE 1 G VIAL ONE (09:41)
--- NOTE | 2017-10-30 09:49 | NUR ---
spoke with and pt to be tele. Called tele floor for bed assignment joséian, was told the charge nurse is still in a meeting. Nursing crossing supervisor notified.
--- NOTE | 2017-10-30 09:55 | NUR ---
SBAR report given to LANCE Abdalla via telephone.
[2017-10-30] MEDS ORDERED: QUET25TA PO ×2 (09:57)
[2017-10-30] MEDS ORDERED: ENAL10TA PO (09:57)
[2017-10-30] MEDS ORDERED: CARB-93 PO (10:00)
[2017-10-30] MEDS ORDERED: DIVA125T2 PO (10:00)
--- NOTE | 2017-10-30 10:15 | NUR ---
Calista bobby in [facility] - 10/30/17 at 1041 by YUMIKO Pt trans to [facility] venegas.
--- NOTE | 2017-10-30 10:17 | NUR ---
PT ARRIVED VIA GURNEY FROM THE ER, PT IS CONFUSED, BREATHING EQUALLY, NON RESPONSIVE TO QUESTIONS, CAREGIVER AT THE BED SIDE. TEMP 99.8 WILL NOTIFY MD. IV SITE ON THE LEFT FOREARM 20 GAUGE. CONTINUE TO MONITOR PT.
--- NOTE | 2017-10-30 10:25 | NUR ---
Pt trans to tele, NAD noted.
--- NOTE | 2017-10-30 10:30 | NUR ---
PT TEMPERATURE IS 99.8 AND TRENDING UP PT GIVEN SUPPOSITORY TYLENOL. CONTINUE TO MONITOR PT.
[2017-10-30 10:45] VITALS: BP 158/90
[2017-10-30] MEDS ORDERED: Z GUARD REMEDY PASTE 57 GM TUBE TOP PRN (11:45)
[2017-10-30] MEDS ORDERED: HYDROCODONE/APAP 5-325MG TABLET PO PRN (11:45)
[2017-10-30] MEDS ORDERED: ACETAMINOPHEN 325 MG TABLET PO PRN (11:45)
[2017-10-30] MEDS ORDERED: ACETAMINOPHEN 650 MG SUPP.RECT RC PRN (11:45)
[2017-10-30] MEDS ORDERED: ONDANSETRON 4 MG/2 ML VIAL IV PRN (11:45)
[2017-10-30] MEDS ORDERED: MAGNESIUM HYDROXIDE 30 ML LIQUID UDC PO PRN (11:45)
[2017-10-30] MEDS: IV NS 1000 ML 1,000 ML IV PRN (12:23)
[2017-10-30] MEDS: RASAGILINE 1 MG PO SCH (12:46)
[2017-10-30] MEDS: CARBIDOPA/LEVODOPA 25-100MG TABLET PO SCH ×2 (12:55→16:00)
[2017-10-30] MEDS: CLONIDINE HCL 0.1 MG TABLET PO PRN (15:41)
--- NOTE | 2017-10-30 15:47 | NUR ---
PT TEMPERATURE IS 100.7 AND BP 182/69. MD ANDINO NOTIFIED. DOCTOR ORDERED CLONIDINE 0.1 FOR SBP>160 AND MONITORING.COOLING MEASURES STARTED, ICE UNDER ARM PITS. CONTINUE TO MONITOR PT.
[2017-10-30 15:53] VITALS: BP 182/69
[2017-10-30] MEDS: DIVALPROEX 125 MG TABLET.DR PO SCH (16:00)
--- NOTE | 2017-10-30 18:10 | NUR ---
PT BP 174/69, NOTIFIED, ONE TIME ORDER OF CLONIDINE 0.1 ORDERED.
[2017-10-30] MEDS ORDERED: CLONIDINE HCL 0.1 MG TABLET PO ONE (18:45)
--- NOTE | 2017-10-30 19:30 | NUR ---
Received patient from day shift nurse. No acute distress noted. A/Ox1-2, appears to be confused, able to make some needs known. BP slightly elevated at start of shift. Day shift nurse received order for clonidine & administered to patient. BP currently at 157/81. will continue to monitor BP. Temp currently at 98.9 no fever noted. Pertinent assessment completed. IV NS running at 75cc/hr with no s/s of infiltration or swelling at IV site. Patient on 2L o2 via NC with labored breathing & crackles heard in lungs. On ATB therapy for UTI. Call light within reach. Will continue to monitor through shift.
[2017-10-30] MEDS: QUETIAPINE FUMARATE 25 MG TABLET PO SCH (20:11)
[2017-10-30] MEDS: DOCUSATE SODIUM 250 MG CAPSULE PO SCH (20:12)
[2017-10-30] MEDS: ATORVASTATIN 10 MG TABLET PO SCH (20:12)
[2017-10-30] MEDS: ENOXAPARIN SODIUM 40 MG/0.4 ML DISP.SYRIN SQ SCH (20:13)
[2017-10-30 20:18] VITALS: BP 157/81
[2017-10-31] VITALS (8 sets, daily range): BP systolic 133–185; BP diastolic 50–75
[2017-10-31] MEDS: IV NS 1000 ML 1,000 ML IV PRN (00:43)
--- NOTE | 2017-10-31 06:10 | NUR ---
Patient stable through shift. No acute distress noted. Sinus rhythm with PVC's on the tele monitor with periods of bradycardia. Patient afebrile, no signs of fever noted. BP remained stable currently at 145/63 HR of 65. All needs attended to. Kept clean & dry and changed per diaper soiling. Medications given per MD order. Safety measures implemented. Call light in reach. Will endorse to day shift nurse.
[2017-10-31 06:14] LABS: BASOPHILS % (AUTO) 0.5 % (0.0-2.0); EOSINOPHILS # (AUTO) 0.1 K/uL (0.0-0.7); EOSINOPHILS % (AUTO) 2.2 % (0.0-7.0); HEMATOCRIT 33.9 % (36.7-47.1); HEMOGLOBIN 11.5 g/dL (12.5-16.3); LYMPHOCYTES # (AUTO) 0.9 K/uL (20.0-40.0); LYMPHOCYTES % (AUTO) 14.8 % (20.5-51.5); MEAN CORPUSCULAR HEMOGLOBIN 32.4 uug (23.8-33.4); MEAN CORPUSCULAR HGB CONC 34 g/dL (32.5-36.3); MEAN CORPUSCULAR VOLUME 95.6 fL (73.0-96.2); MONOCYTES # (AUTO) 0.7 K/uL (2.0-10.0); NEUTROPHILS # (AUTO) 4.1 K/uL (1.8-8.9); NEUTROPHILS % (AUTO) 70.5 % (38.5-71.5); PLATELET COUNT (AUTO) 156 K/uL (152-348); RED BLOOD CELL COUNT(AUTO) 3.55 MIL/uL (4.06-5.63); WHITE BLOOD COUNT (AUTO) 5.8 K/uL (3.6-10.2)
[2017-10-31 06:39] LABS: CARBON DIOXIDE 28 mmol/L (21-32); CHLORIDE 106 mmol/L (98-107); CREATININE 1.3 mg/dL (0.6-1.3); GLUCOSE 77 mg/dL (74-106); MAGNESIUM 1.9 mg/dL (1.8-2.4); PHOSPHOROUS 3.2 mg/dL (2.5-4.9); POTASSIUM 4.3 mmol/L (3.5-5.1); UREA NITROGEN, BLOOD 34 mg/dL (7-18)
--- NOTE | 2017-10-31 07:00 | NUR ---
RECEIVED PATIENT ON BED, NO ACUTE DISTRESS NOTED, AAOX2-3. ON O2 @ 2LPM VIA NC, WELL TOLERATED. IV ACCESS ON THE LFA #20 RUNNING NS @75 CC/HR INFUSING WELL. AFEBRILE. PER DIRECTOR OF CARDIAC REHABILITATION PATIENT HAS PERIODS OF SINUS TACHY 130'S AND SINUS JAVAD 40'S, BUT ASYMPTOMATIC. LAST BP 145/63 SC 65. COMFORT MEASURES PROVIDED. WILL CONTINUE TO MONITOR CLOSELY.
[2017-10-31] MEDS: CEFTRIAXONE 1 G in IV DEXTROSE 5% 50 ML IV SCH (08:24)
[2017-10-31] MEDS: DIVALPROEX 125 MG TABLET.DR PO SCH ×2 (08:25→17:17)
[2017-10-31] MEDS: QUETIAPINE FUMARATE 25 MG TABLET PO SCH ×2 (08:25→20:28)
[2017-10-31] MEDS: CARBIDOPA/LEVODOPA 25-100MG TABLET PO SCH ×3 (08:25→17:17)
[2017-10-31] MEDS: ASPIRIN 81 MG TAB.CHEW PO SCH (08:25)
[2017-10-31] MEDS: RASAGILINE 1 MG PO SCH (08:27)
--- NOTE | 2017-10-31 08:30 | NUR ---
PATIENT NOTED W/ ELEVATED BP 185/75 FL 60 THEN 160/[address] ANDINO AWARE.
[2017-10-31] MEDS: AMLODIPINE 2.5 MG TABLET PO SCH (10:13)
--- NOTE | 2017-10-31 19:30 | NUR ---
Received patient from day shift RN. Patient in stable condition at start of shift with no acute distress. Pertinent assessment completed. BP elevated at 185/80, patient asymptomatic. Will reassess BP & monitor. Sinus Rhythm on the Tele monitor LA of 71.On o2 via nc at 2L. No complaints of pain & SOB. Noted with IV NS running at 75cc/hr into Left forearm. IV site is clean, intact, no s/s of infiltration noted. On ATB therapy for UTI. Bed in low position & locked. Call light in reach. Will continue to monitor through shift.
[2017-10-31] MEDS: ENOXAPARIN SODIUM 40 MG/0.4 ML DISP.SYRIN SQ SCH (20:27)
[2017-10-31] MEDS: DOCUSATE SODIUM 250 MG CAPSULE PO SCH (20:28)
[2017-10-31] MEDS: ATORVASTATIN 10 MG TABLET PO SCH (20:28)
--- NOTE | 2017-10-31 21:26 | NUR ---
BP reassessed at 135/60. BP within range. Will monitor closely.
[2017-11-01] MEDS: IV NS 1000 ML 1,000 ML IV PRN (00:57)
[2017-11-01 03:45] VITALS: BP 153/66
[2017-11-01] MEDS: CARBIDOPA/LEVODOPA 25-100MG TABLET PO SCH ×3 (08:13→16:36)
[2017-11-01] MEDS: ASPIRIN 81 MG TAB.CHEW PO SCH (08:13)
[2017-11-01] MEDS: DIVALPROEX 125 MG TABLET.DR PO SCH ×2 (08:13→16:36)
[2017-11-01] MEDS: RASAGILINE 1 MG PO SCH (08:13)
[2017-11-01] MEDS: QUETIAPINE FUMARATE 25 MG TABLET PO SCH (08:13)
[2017-11-01] MEDS: CEFTRIAXONE 1 G in IV DEXTROSE 5% 50 ML IV SCH (08:15)
[2017-11-01] MEDS: AMLODIPINE 2.5 MG TABLET PO SCH (08:16)
[2017-11-01] MEDS ORDERED: NITR100C6 PO (08:44)
--- NOTE | 2017-11-01 09:00 | NUR ---
DISCONTINUED IVF. PATIENT TO BE DISCHARGED TODAY.
[2017-11-01 11:21] VITALS: BP 147/68
[2017-11-01] MEDS: CLONIDINE HCL 0.1 MG TABLET PO PRN (14:59)
[2017-11-01 15:14] VITALS: BP 179/72
--- NOTE | 2017-11-01 18:54 | NUR ---
PT DISCHARGED TO HOME. PT PICKED UP BY AMBULANCE. PT IS ALERT, IN NO DISTRESS. IV ACCESS/ID BAND REMOVED.
== END 2017-11-01 19:05 | disposition home health service (06) | DRG 682 ==
LOC: ER 07:43 → TELE 10:05 → MED 10-31 17:50
PROVIDERS: ADMIT Internal Medicine; ATTEND Internal Medicine
DX: N17.0 Acute kidney failure with tubular necrosis (principal); G92 Toxic encephalopathy; N39.0 Urinary tract infection, site not specified; M62.82 Rhabdomyolysis; E86.0 Dehydration; G31.83 Neurocognitive disorder with Lewy bodies; F02.80 Dementia in other diseases classified elsewhere, unspecified severity, without behavioral disturbance, psychotic disturbance, mood disturbance, and anxiety; Z86.73 Personal history of transient ischemic attack (TIA), and cerebral infarction without residual deficits; Z83.3 Family history of diabetes mellitus; Z82.3 Family history of stroke; E78.5 Hyperlipidemia, unspecified; Z88.2 Allergy status to sulfonamides; D63.8 Anemia in other chronic diseases classified elsewhere; I13.10 Hypertensive heart and chronic kidney disease without heart failure, with stage 1 through stage 4 chronic kidney disease, or unspecified chronic kidney disease; N18.9 Chronic kidney disease, unspecified; Z79.82 Long term (current) use of aspirin
CPT/HCPCS: 36415; 70030-TC; 70450; 71045; 83605; 83735; 84100; 85025; 85610; 93005; A4663; J0696; J1650; J7030; J7060

== ENCOUNTER 2017-12-25 14:29 | Inpatient (IN) | payer OTHER ==
[~2017-12-25] VITALS: Ht 180.3 cm; Wt 83.5 kg
[~2017-12-25 14:29] MED LIST changes: +CARB-93 PO; -CARB1TAB21 PO; -DILT300C36 PO; +DIVA125T2 PO; -DIVA125T32 PO; +ENAL10TA PO; +NITR100C6 PO; +QUET25TA PO; -RASA1TAB4 PO
[2017-12-25] MEDS ORDERED: HYDR25TA4 PO (15:38)
[2017-12-25] MEDS ORDERED: TAMS0.4C34 PO (15:38)
[2017-12-25] MEDS ORDERED: QUET25TA PO (15:38)
[2017-12-25] MEDS ORDERED: RASA1TAB4 PO (15:38)
[2017-12-25] MEDS ORDERED: SIMV20TA6 PO (15:38)
[2017-12-25] MEDS ORDERED: TRIH2TAB3 PO (15:38)
[2017-12-25] MEDS ORDERED: CLON0.1T PO (15:39)
[2017-12-25 15:55] LABS: BASOPHILS % (AUTO) 0.5 % (0.0-2.0); EOSINOPHILS # (AUTO) 0.1 K/uL (0.0-0.7); HEMATOCRIT 38.5 % (36.7-47.1); LYMPHOCYTES # (AUTO) 1.3 K/uL (20.0-40.0); LYMPHOCYTES % (AUTO) 23.9 % (20.5-51.5); MEAN CORPUSCULAR HEMOGLOBIN 32.4 uug (23.8-33.4); MEAN CORPUSCULAR HGB CONC 34 g/dL (32.5-36.3); MEAN CORPUSCULAR VOLUME 96.1 fL (73.0-96.2); MONOCYTES # (AUTO) 0.3 K/uL (2.0-10.0); MONOCYTES % (AUTO) 6.3 % (0.0-11.0); NEUTROPHILS # (AUTO) 3.6 K/uL (1.8-8.9); NEUTROPHILS % (AUTO) 67.3 % (38.5-71.5); PLATELET COUNT (AUTO) 263 K/uL (152-348); RED BLOOD CELL COUNT(AUTO) 4.01 MIL/uL (4.06-5.63); WHITE BLOOD COUNT (AUTO) 5.4 K/uL (3.6-10.2)
[2017-12-25 16:12] LABS: CARBON DIOXIDE 27 mmol/L (21-32); CHLORIDE 102 mmol/L (98-107); CREATININE 1.1 mg/dL (0.6-1.3); GLUCOSE 96 mg/dL (74-106); POTASSIUM 4.2 mmol/L (3.5-5.1); UREA NITROGEN, BLOOD 25 mg/dL (7-18)
[2017-12-25 16:17] LABS: ALANINE AMINOTRANSFERASE 49 U/L (16-63); ALKALINE PHOSPHATASE 103 U/L (50-136); ASPARTATE AMINOTRANSFERASE 29 U/L (15-37); BILIRUBIN,DIRECT 0.1 mg/dL (0.0-0.2); BILIRUBIN,TOTAL 0.4 mg/dL (0.2-1.0); TOTAL PROTEIN, SERUM 8.6 g/dL (6.4-8.2)
[2017-12-25 16:18] LABS: ACETAMINOPHEN < 2.0 ug/mL (10-30)
[2017-12-25 16:25] LABS: ETHANOL < 3 MG/DL (0-0)
[2017-12-25] MEDS ORDERED: IV NORMAL SALINE 500 ML BAG IV ONE (16:30)
--- NOTE | 2017-12-25 16:44 | NUR ---
Patient is eating dinner with good appetite, pending urine specimen@this time
[2017-12-25 17:57] LABS: *BILIRUBIN,URIN NEGATIVE (NEGATIVE); *BLOOD, URINE 2+ (NEGATIVE); *CLARITY,URINE TURBID (CLEAR); *COLOR,URINE YELLOW (YELLOW); *KETONES,URINE NEGATIVE (NEGATIVE); *PROTEIN,URINE TRACE (NEGATIVE); *UROBILINOGEN,URINE 0.2 E.U./dl (NORMAL); LEUKOCYTE ESTERASE ,URINE 3+ (NEGATIVE); NITRITE, URINE POSITIVE (NEGATIVE); PH,URINE 5.5 (5.0-8.0); UGLUCOSE NEGATIVE (NEGATIVE)
[2017-12-25 18:12] LABS: *AMPHETAMINE, URINE NEGATIVE (NEGATIVE); *BARBITURATE, URINE NEGATIVE (NEGATIVE); *CANNABINOID, URINE NEGATIVE (NEGATIVE); *COCCAINE, URINE NEGATIVE (NEGATIVE); *OPIATE, URINE NEGATIVE (NEGATIVE); *PHENCYCLIDINE SCREEN,URINE NEGATIVE (NEGATIVE)
[2017-12-25] MEDS ORDERED: CIPROFLOXACIN HCL 250 MG TABLET PO ONE (18:15)
[2017-12-25 18:18] LABS: BACTERIA,URINE MANY /HPF (NONE SEEN); WBC,URINE TNTC /HPF (0-3)
[2017-12-25] MEDS ORDERED: CIPROFLOXACIN HCL 250 MG TABLET ONE (18:21)
--- NOTE | 2017-12-25 19:15 | NUR ---
pending psych direct service worker's evaluation, SBAR to RN Jesus
--- NOTE | 2017-12-25 19:38 | NUR ---
Patient in bed, sitter at bedside. Patient pending AMMUNITION SUPERVISOR evaluation for psych consult.
--- NOTE | 2017-12-25 19:38 | NUR ---
Edgar Mcnulty LCSW in department , here for patient evaluation.
--- NOTE | 2017-12-25 20:24 | NUR ---
Report given to Leeanna LUCAS in MHU. Patient admitted for psychosis under Dr Seaman/Heather
[2017-12-25 20:58] VITALS: BP 141/61
--- NOTE | 2017-12-25 21:00 | NUR ---
At APPROX 2039, ADMITTED 77 YEARS OLD MALE TO [facility] MHU ON A 5150 HOLD FOR DTS AND GD. PT WAS MEDICALLY CLEARED AT [facility] ER. PER HOLD, PATIENT LIVES AT HOME, HE WAS TAKEN BY DAUGHTER TO [facility] ER D/T PATIENT TOLD HIS CAREGIVER THAT HE WANTED TO COMMIT SUICIDE AND STATED, "TAKE MY WITH ME". IN ADDITION, HIS DAUGHTER ARNOLD Gonzalez STATED THAT PATIENT HAS BEEN DEPRESSED. SHE ALSO STATED THAT PT, WAS NOTED AGITATED, AND AGGRESSIVE AND COMBATIVE AT TIMES WITH CAREGIVER. HOLD STARTED TODAY AT 1999 AND WILL END ON 12/28/17 AT 1999. AT TIME OF ADMISSION PATIENT WAS NOTED A/O X 1 (NAME ONLY) HE IS NOTED CALM, POOR HISTORIAN, IMPAIRED INSIGHT AND JUDGMENT. HE WAS UNABLE TO SIGN ANY OF HIS ADMISSION PAPERS. AT TIME OF ADMISSION, CAREGIVER WAS BY HIS SIDE. CAREGIVER WAS ABLE TO PROVIDE SOME INFORMATION. DAUGHTER ARNOLD WAS REMAINED IN THE ER WAITING FOR CAREGIVER. SKIN ASSESSMENT WAS DONE. SMALL EXCORIATION AREA NOTED IN LEFT SIDE OF BUTTOCKS. Z-GUARD WAS ORDERED. WILL CONTINUE TO MONITOR CLOSELY. MEDICATION WERE RECONCILE. PT IS UNDER THE CARE OF DR GRANT. WILL CONTINUE TO MONITOR.
[2017-12-25] MEDS ORDERED: ACETAMINOPHEN 325 MG TABLET PO PRN (21:15)
[2017-12-25] MEDS ORDERED: LORAZEPAM 0.5 MG TABLET PO PRN (21:15)
[2017-12-25] MEDS ORDERED: MAGNESIUM HYDROXIDE 30 ML LIQUID UDC PO PRN (21:15)
[2017-12-25] MEDS ORDERED: MAG HYDROX/AL HYDROX/SIMETH 30 ML LIQUID UDC PO PRN (21:15)
[2017-12-25] MEDS ORDERED: Z GUARD REMEDY PASTE 57 GM TUBE TOP PRN (22:15)
[2017-12-26] MEDS: TEMAZEPAM 7.5 MG CAPSULE PO PRN ×2 (01:40→21:20)
[2017-12-26 07:30] VITALS: BP 110/86
[2017-12-26] MEDS: Z GUARD REMEDY PASTE 57 GM TUBE TOP SCH ×2 (09:20→21:20)
[2017-12-26] MEDS ORDERED: CLONIDINE HCL 0.1 MG TABLET PO PRN (10:30)
[2017-12-26] MEDS: SERTRALINE HCL 50 MG TABLET PO SCH (12:31)
[2017-12-26] MEDS: QUETIAPINE FUMARATE 25 MG TABLET PO SCH ×2 (12:31→17:31)
[2017-12-26] MEDS: DIVALPROEX SPRINKLE 125 MG CAP.SPRINK PO SCH ×2 (12:31→17:30)
[2017-12-26] MEDS: TRIHEXYPHENIDYL HCL 2 MG TABLET PO SCH ×2 (12:34→17:31)
[2017-12-26 15:55] VITALS: BP 106/58
[2017-12-26] MEDS: SIMVASTATIN 20 MG TABLET PO SCH (17:30)
[2017-12-26 19:30] VITALS: BP 153/60
[2017-12-26] MEDS: NITROFURANTOIN/NITROFURAN MAC 100 MG CAPSULE PO SCH (21:20)
--- NOTE | 2017-12-26 22:00 | NUR ---
received to care, lying in bed, isolative, but pleasant upon approach. denied any suicidal ideations, or desire to harm self. compliant with medications and staff direction. PRN restoril was given at 2119, for insomnia/restlessness. as of 2199, he appears to be asleep. no distress noted. will continue to monitor closely.
--- NOTE | 2017-12-27 06:00 | NUR ---
slept 7.0 hours total. continues to sleep. no distress noted.
[2017-12-27 07:30] VITALS: BP 153/80
[2017-12-27] MEDS: SERTRALINE HCL 50 MG TABLET PO SCH (08:53)
[2017-12-27] MEDS: QUETIAPINE FUMARATE 25 MG TABLET PO SCH ×2 (08:53→17:00)
[2017-12-27] MEDS: ASPIRIN 81 MG TAB.CHEW PO SCH (08:53)
[2017-12-27] MEDS: DIVALPROEX SPRINKLE 125 MG CAP.SPRINK PO SCH ×3 (08:53→17:00)
[2017-12-27] MEDS: NITROFURANTOIN/NITROFURAN MAC 100 MG CAPSULE PO SCH ×2 (08:53→21:00)
[2017-12-27] MEDS: TAMSULOSIN HCL 0.4 MG CAP.SR.24H PO SCH (08:53)
[2017-12-27] MEDS: HYDROCHLOROTHIAZIDE 25 MG TABLET PO SCH (08:53)
[2017-12-27] MEDS: Z GUARD REMEDY PASTE 57 GM TUBE TOP SCH ×2 (08:55→21:00)
[2017-12-27] MEDS: ENALAPRIL 10 MG TABLET PO SCH (08:56)
[2017-12-27] MEDS: TRIHEXYPHENIDYL HCL 2 MG TABLET PO SCH ×3 (08:56→17:00)
[2017-12-27] MEDS ORDERED: Medication Not On Formulary EA (Rasagiline Mesylate 1 MG) PO SCH (09:00)
--- NOTE | 2017-12-27 10:00 | NUR ---
Received to care, a 77 y/o male pt lying in bed, isolative, but pleasant upon approach. denied any suicidal ideations, or desire to harm self. compliant with medications and staff direction. No distress noted. will continue to monitor closely.
[2017-12-27 13:00] VITALS: BP 140/69
[2017-12-27] MEDS: AZILECT 1 MG PO SCH (14:02)
--- NOTE | 2017-12-27 14:39 | NUR ---
Initial Discharge Note: Patient lives at home [[address] [place] [address]; ] with his , his 7 [id number], and patient's 's 23/10 caregiver. Per patient, he would like to return home when ready for discharge. dimension mill worker reached out to patients daughter, Vicky [[phone]], and patient's son, Mohinder [[phone]], but received no answer. dimension mill worker left a voicemail for both contacts requesting phone call back. dimension mill worker will follow-up. dimension mill worker will work on planning a safe and proper discharge for patient.
--- NOTE | 2017-12-27 15:31 | NUR ---
UR Note: toll transmission worker faxed patient clinicals to [facility] ed case manager[facility]alia [fax: [phone]; ph: [phone]]
--- NOTE | 2017-12-27 16:01 | NUR ---
Discharge Planning: cooler room worker received call back from patients daughter, Vicky [[phone]]. Per Vicky, she is the POA and she also stated that patient has an Advanced Directive. Both documents will be faxed over by Vicky. Vicky also confirms tentative discharge plan of patient returning home when ready.
--- NOTE | 2017-12-27 16:10 | NUR ---
Firearms Report: marble worker submitted a firearms report to [employer] for a 5150 DTS certification.
[2017-12-27] MEDS: SIMVASTATIN 20 MG TABLET PO SCH (17:09)
[2017-12-27 20:54] VITALS: BP 141/61
--- NOTE | 2017-12-27 22:00 | NUR ---
received to care, lying in bed, talking to self. refused all medications, food, and fluids. as of 2199, he continues to talk to self intermittently. continues to refuse meds and fluids. will continue to monitor closely.
--- NOTE | 2017-12-27 23:00 | NUR ---
remains restless. continues to refuse all medications.
[2017-12-28] MEDS: TEMAZEPAM 7.5 MG CAPSULE PO PRN ×2 (00:33→23:40)
--- NOTE | 2017-12-28 00:33 | NUR ---
PRN restoril was given for insomnia, along with apple juice. continues to refuse his macrobid.
--- NOTE | 2017-12-28 01:00 | NUR ---
appears to be asleep. no distress noted.
--- NOTE | 2017-12-28 06:00 | NUR ---
slept 5.5 hours, total. assisted with am care, and shower. no distress noted.
[2017-12-28 07:29] LABS: CARBON DIOXIDE 25 mmol/L (21-32); CHLORIDE 104 mmol/L (98-107); CREATININE 1.4 mg/dL (0.6-1.3); GLUCOSE 92 mg/dL (74-106); UREA NITROGEN, BLOOD 27 mg/dL (7-18)
[2017-12-28 07:30] VITALS: BP 194/101
[2017-12-28] MEDS: NITROFURANTOIN/NITROFURAN MAC 100 MG CAPSULE PO SCH (09:08)
[2017-12-28] MEDS: ENALAPRIL 10 MG TABLET PO SCH (09:09)
[2017-12-28] MEDS: TRIHEXYPHENIDYL HCL 2 MG TABLET PO SCH ×3 (09:09→16:22)
[2017-12-28] MEDS: ASPIRIN 81 MG TAB.CHEW PO SCH (09:09)
[2017-12-28] MEDS: TAMSULOSIN HCL 0.4 MG CAP.SR.24H PO SCH (09:10)
[2017-12-28] MEDS: DIVALPROEX SPRINKLE 125 MG CAP.SPRINK PO SCH ×3 (09:10→16:22)
[2017-12-28] MEDS: AZILECT 1 MG PO SCH (09:10)
[2017-12-28] MEDS: QUETIAPINE FUMARATE 25 MG TABLET PO SCH ×2 (09:10→16:23)
[2017-12-28] MEDS: SERTRALINE HCL 50 MG TABLET PO SCH (09:10)
[2017-12-28] MEDS: HYDROCHLOROTHIAZIDE 25 MG TABLET PO SCH (09:10)
[2017-12-28] MEDS: Z GUARD REMEDY PASTE 57 GM TUBE TOP SCH ×3 (09:11→23:34)
--- NOTE | 2017-12-28 10:26 | NUR ---
UR Note: life skills worker faxed patient clinicals to [facility] block and case makerAmalia [fax: [phone]; ph: [phone]]. Awaiting authorization. SW will continue to follow-up.
[2017-12-28] MEDS ORDERED: IV NS 1000 ML 1,000 ML IV ONE (10:30)
--- NOTE | 2017-12-28 11:38 | NUR ---
Gps/Cartridge Assembler- Insyte # 22-saline lock inserted to his left forearm, for IVF of NS 1 liter at the rate of 100 ml /hr as ordered. Patient was well informed. BUN 27, Creat 1.1, Dr Gomez aware of labs.
[2017-12-28 15:28] VITALS: BP 145/52
--- NOTE | 2017-12-28 15:57 | NUR ---
Gps/Watch Technician- Remains up on his otoniel-chair by the Nurses station , with IVF of NS infusing well to his left forearm via IV pump. ,site secured. Had quiet, cooperative , speaks Mosotho (tagalog) . Fine tremors to his extremities noted when initiating simple tasks, needing assist with his meals, assisted with his oral fluids, offered. Allowed staff to trimmed his remy .
[2017-12-28] MEDS: SIMVASTATIN 20 MG TABLET PO SCH (17:23)
[2017-12-28 20:00] VITALS: BP 131/66
--- NOTE | 2017-12-28 22:00 | NUR ---
received to care, up in otoniel chair, talking to self. iv fluids were completed. heplock was flushed, and remains patent, and intact. assisted to bed. as of 0, he appears to be asleep. no distress noted. will continue to monitor closely.
--- NOTE | 2017-12-28 23:40 | NUR ---
PRN restoril given for insomnia
--- NOTE | 2017-12-29 00:15 | NUR ---
appears to be asleep. no distress noted.
--- NOTE | 2017-12-29 06:00 | NUR ---
slept 4.5 hours, total. assisted with am care. no distress noted.
[2017-12-29 06:50] LABS: CARBON DIOXIDE 26 mmol/L (21-32); CHLORIDE 105 mmol/L (98-107); CREATININE 1.5 mg/dL (0.6-1.3); GLUCOSE 97 mg/dL (74-106); UREA NITROGEN, BLOOD 36 mg/dL (7-18)
[2017-12-29 07:30] VITALS: BP 158/98
[2017-12-29] MEDS: HYDROCHLOROTHIAZIDE 25 MG TABLET PO SCH (08:14)
[2017-12-29] MEDS: ASPIRIN 81 MG TAB.CHEW PO SCH (08:14)
[2017-12-29] MEDS: TAMSULOSIN HCL 0.4 MG CAP.SR.24H PO SCH (08:14)
[2017-12-29] MEDS: TRIHEXYPHENIDYL HCL 2 MG TABLET PO SCH ×3 (08:14→16:44)
[2017-12-29] MEDS: DIVALPROEX SPRINKLE 125 MG CAP.SPRINK PO SCH ×3 (08:14→16:44)
[2017-12-29] MEDS: SERTRALINE HCL 50 MG TABLET PO SCH (08:14)
[2017-12-29] MEDS: AZILECT 1 MG PO SCH (08:15)
[2017-12-29] MEDS: QUETIAPINE FUMARATE 25 MG TABLET PO SCH ×2 (08:15→16:44)
[2017-12-29] MEDS: ENALAPRIL 10 MG TABLET PO SCH (08:15)
[2017-12-29] MEDS ORDERED: IV NS 1000 ML 1,000 ML IV ONE (09:45)
[2017-12-29 15:19] VITALS: BP 144/83
[2017-12-29] MEDS: SIMVASTATIN 20 MG TABLET PO SCH (17:16)
[2017-12-29 20:00] VITALS: BP 154/62
[2017-12-29] MEDS: Z GUARD REMEDY PASTE 57 GM TUBE TOP SCH (20:15)
[2017-12-30 07:30] VITALS: BP 193/74
[2017-12-30 07:51] LABS: CARBON DIOXIDE 26 mmol/L (21-32); CHLORIDE 107 mmol/L (98-107); GLUCOSE 89 mg/dL (74-106); UREA NITROGEN, BLOOD 23 mg/dL (7-18)
[2017-12-30] MEDS: HYDROCHLOROTHIAZIDE 25 MG TABLET PO SCH (10:00)
[2017-12-30] MEDS: TRIHEXYPHENIDYL HCL 2 MG TABLET PO SCH ×3 (10:00→16:57)
[2017-12-30] MEDS: SERTRALINE HCL 50 MG TABLET PO SCH (10:00)
[2017-12-30] MEDS: AZILECT 1 MG PO SCH (10:00)
[2017-12-30] MEDS: ASPIRIN 81 MG TAB.CHEW PO SCH (10:00)
[2017-12-30] MEDS: TAMSULOSIN HCL 0.4 MG CAP.SR.24H PO SCH (10:00)
[2017-12-30] MEDS: DIVALPROEX SPRINKLE 125 MG CAP.SPRINK PO SCH ×3 (10:00→16:57)
[2017-12-30] MEDS: QUETIAPINE FUMARATE 25 MG TABLET PO SCH ×3 (10:00→16:57)
[2017-12-30] MEDS: ENALAPRIL 10 MG TABLET PO SCH (10:00)
[2017-12-30] MEDS: Z GUARD REMEDY PASTE 57 GM TUBE TOP SCH ×2 (10:13→20:16)
[2017-12-30 15:41] VITALS: BP 111/73
[2017-12-30] MEDS: SIMVASTATIN 20 MG TABLET PO SCH (17:00)
[2017-12-30 20:00] VITALS: BP 148/79
[2017-12-31 07:30] VITALS: BP 129/66
[2017-12-31 09:00] VITALS: BP 129/66
[2017-12-31] MEDS: AZILECT 1 MG PO SCH (09:00)
[2017-12-31] MEDS: ASPIRIN 81 MG TAB.CHEW PO SCH (09:00)
[2017-12-31] MEDS: TAMSULOSIN HCL 0.4 MG CAP.SR.24H PO SCH (09:00)
[2017-12-31] MEDS: SERTRALINE HCL 50 MG TABLET PO SCH (09:00)
[2017-12-31] MEDS: TRIHEXYPHENIDYL HCL 2 MG TABLET PO SCH ×3 (09:00→17:00)
[2017-12-31] MEDS: HYDROCHLOROTHIAZIDE 25 MG TABLET PO SCH (09:00)
[2017-12-31] MEDS: ENALAPRIL 10 MG TABLET PO SCH (09:00)
[2017-12-31] MEDS: DIVALPROEX SPRINKLE 125 MG CAP.SPRINK PO SCH ×3 (09:00→17:00)
[2017-12-31] MEDS: QUETIAPINE FUMARATE 25 MG TABLET PO SCH ×3 (09:00→17:00)
--- NOTE | 2017-12-31 09:56 | NUR ---
UR Note: metal casting trades worker faxed patient clinicals to [facility] Regional Maintenance Manager, Amalia [fax: [phone]; ph: [phone]]. Awaiting authorization. SW will continue to follow-up. Spoke with Amalia about Home Health for PT/OT for the pt when he returns home. Faxed Home Health Order.
[2017-12-31] MEDS: Z GUARD REMEDY PASTE 57 GM TUBE TOP SCH (10:17)
[2017-12-31] MEDS ORDERED: NITROFURANTOIN/NITROFURAN MAC 100 MG CAPSULE PO SCH (10:17)
[2017-12-31] MEDS: SIMVASTATIN 20 MG TABLET PO SCH (17:18)
--- NOTE | 2017-12-31 18:00 | NUR ---
GPS: Nursing Notes: Discharge Notes: Patient is awake and responding to his name, needs a lot of prompting to be compliant with nursing care, total care, at this time denies any SI/HI, denies any AH/VH, denies any pain or discomfort, denies any SOB, Dr. Gutierrez covering for Dr. Seaman discontinue 5250 and order for patient to be discharge to Med. Surg. # 210. Dx: UTI: E. Coli ESBL, report given to nurse Dottie LUCAS, patient's daughter Vicky was notify, patient took all his belongings with him.
[2017-12-31] MEDS ORDERED: TEMA15CA PO (20:04)
[2017-12-31] MEDS ORDERED: MAGN400O6 PO (20:04)
[2017-12-31] MEDS ORDERED: SERT50TA PO (20:04)
[2017-12-31] MEDS ORDERED: ACET-2154 PO (20:04)
[2017-12-31] MEDS ORDERED: QUET25TA PO (20:04)
[2017-12-31] MEDS ORDERED: MAG-55 PO (20:04)
[2017-12-31] MEDS ORDERED: LORA-258 PO (20:04)
[2017-12-31] MEDS ORDERED: NITR100C11 PO (20:04)
[2017-12-31] MEDS ORDERED: DIVA125C2 PO (20:04)
--- NOTE | 2018-01-01 09:09 | NUR ---
Discharge/UR Note: Patient was discharged to medical floor for UTI E. Coli ESBL. Family aware. Patient will be provided with outpatient mental health resources to [facility] , Jeanne Bui , and the [facility] upon discharge from medical floor. VALENTE faxed discharge clinicals to Amalia, Gas Inspector at [facility] (ph. [phone]; fax [phone]). Per Amalia, patient is authorized to receive Home Health upon discharge from [facility] (Auth#[id number]) (ph. ). Awaiting for authorization for patient's stay. VALENTE will continue to follow-up.
== END 2017-12-31 18:00 | disposition short-term general hospital (02) | DRG 885 ==
LOC: ER 14:29 → GPS 20:32
PROVIDERS: ADMIT Psychiatry & Neurology Psychiatry; ATTEND Family Medicine
DX: F33.3 Major depressive disorder, recurrent, severe with psychotic symptoms (principal); N17.0 Acute kidney failure with tubular necrosis; N18.9 Chronic kidney disease, unspecified; F03.91 Unspecified dementia, unspecified severity, with behavioral disturbance; N39.0 Urinary tract infection, site not specified; Z86.73 Personal history of transient ischemic attack (TIA), and cerebral infarction without residual deficits; Z83.3 Family history of diabetes mellitus; Z82.49 Family history of ischemic heart disease and other diseases of the circulatory system; Z82.3 Family history of stroke; Z88.2 Allergy status to sulfonamides; E86.0 Dehydration; E78.5 Hyperlipidemia, unspecified; Z79.82 Long term (current) use of aspirin; Z79.899 Other long term (current) drug therapy; B96.20 Unspecified Escherichia coli [E. coli] as the cause of diseases classified elsewhere; Z16.12 Extended spectrum beta lactamase (ESBL) resistance; I12.9 Hypertensive chronic kidney disease with stage 1 through stage 4 chronic kidney disease, or unspecified chronic kidney disease; G20 Parkinson's disease
CPT/HCPCS: 36415; 70030-TC; 71045; 80307; 85025; 87077; 87086; 93005; 97116; 97530; A4663; G0480; G0480-TC; J7030

== ENCOUNTER 2017-12-31 17:44 | Inpatient (IN) | payer OTHER ==
[~2017-12-31] VITALS: Ht 175.3 cm; Wt 81.2 kg
[~2017-12-31 17:44] MED LIST changes: -ATOR10TA PO; -CARB-93 PO; +CLON0.1T PO; -DIVA125T2 PO; +HYDR25TA4 PO; -NITR100C6 PO; -QUET25TA PO; -RASA1TAB PO; +RASA1TAB4 PO; +SIMV20TA6 PO; +TAMS0.4C34 PO; +TRIH2TAB3 PO
[2017-12-31 18:55] VITALS: BP 127/77
[2017-12-31] MEDS ORDERED: ACET-2154 PO (20:04)
[2017-12-31] MEDS ORDERED: QUET25TA PO (20:04)
[2017-12-31] MEDS ORDERED: NITR100C11 PO (20:04)
[2017-12-31] MEDS ORDERED: DIVA125C2 PO (20:04)
[2017-12-31] MEDS ORDERED: TEMA15CA PO (20:04)
[2017-12-31] MEDS ORDERED: MAG-55 PO (20:04)
[2017-12-31] MEDS ORDERED: LORA-258 PO (20:04)
[2017-12-31] MEDS ORDERED: SERT50TA PO (20:04)
[2017-12-31] MEDS ORDERED: MAGN400O6 PO (20:04)
[2017-12-31] MEDS ORDERED: ACETAMINOPHEN 325 MG TABLET PO PRN (20:15)
[2017-12-31] MEDS ORDERED: HYDROCODONE/APAP 5-325MG TABLET PO PRN (20:15)
[2017-12-31] MEDS ORDERED: ONDANSETRON 4 MG/2 ML VIAL IV PRN (20:15)
[2017-12-31 20:27] VITALS: BP 163/79
[2017-12-31] MEDS ORDERED: LEVOFLOXACIN 500 MG/D5W 500 MG in PREMIXED 1 EACH IV SCH (21:00)
--- NOTE | 2017-12-31 21:00 | NUR ---
RECEIVED PATIENT LYING IN BED. ASLEEP BUT EASILY AROUSE TO VERBAL STIMULI. AOX1 ONLY, MAINLY CONFUSED. SPEAKING TAGALOG, WITH OCCASIONAL GARBLED SPEECH. NO ANXIETY NOTED AT THIS TIME. IN NO ACUTE DISTRESS. IV SITE ON LEFT FA INTACT AND PATENT. NEEDS ANTICIPATED AND ATTENDED TO. SAFETY MEASURE INITIATED AND CALL [facility] WITHIN REACH.
[2017-12-31] MEDS: SIMVASTATIN 20 MG TABLET PO SCH (21:19)
[2018-01-01] MEDS: ENALAPRIL 10 MG TABLET PO SCH (06:01)
[2018-01-01 06:05] VITALS: BP 172/60
--- NOTE | 2018-01-01 06:37 | NUR ---
PT SLEPT WELL THROUGH THE NIGHT AND WAS EASILY AWOKEN, PT SHOWED NO S/S OF PAIN OR DIFFICULTY BREATHING. PT WAS CALM AND COOPERATIVE, PT IS CONFUSED WOULD TALK NONSENSE. ALL NEEDS MET, SAFETY MEASURES ARE IN PLACE, CALL LIGHT WITHIN REACH, BED ALARM IS ON.
--- NOTE | 2018-01-01 06:58 | NUR ---
PT IN THE MORNING HAD ELEVATED BP AT 172/60, PT WAS GIVEN ONE OF HIS MORNING HTN MEDICATION, PT'S BP WAS STILL ELEVATED AT 173/75, DR BARRAGAN WAS CALLED, WAITING FOR RESPONSE BACK. PLAN OF CARE REPORTED TO LANCE
[2018-01-01] MEDS ORDERED: TAMSULOSIN HCL 0.4 MG CAP.SR.24H PO SCH (09:00)
[2018-01-01] MEDS: HYDROCHLOROTHIAZIDE 25 MG TABLET PO SCH (09:02)
[2018-01-01] MEDS: ASPIRIN 81 MG TAB.CHEW PO SCH (09:03)
--- NOTE | 2018-01-01 09:36 | NUR ---
BP rechecked 146/64. received patient awake, alert x1. Confused, with visual hallucinations. No suicidal ideations noted. Not in any form of distress. Afebrile.
[2018-01-01 10:51] LABS: BASOPHILS % (AUTO) 0.6 % (0.0-2.0); EOSINOPHILS # (AUTO) 0.1 K/uL (0.0-0.7); EOSINOPHILS % (AUTO) 1.1 % (0.0-7.0); HEMATOCRIT 36.9 % (36.7-47.1); HEMOGLOBIN 12.3 g/dL (12.5-16.3); LYMPHOCYTES # (AUTO) 1.1 K/uL (20.0-40.0); LYMPHOCYTES % (AUTO) 17.7 % (20.5-51.5); MEAN CORPUSCULAR HEMOGLOBIN 32.3 uug (23.8-33.4); MEAN CORPUSCULAR HGB CONC 33 g/dL (32.5-36.3); MEAN CORPUSCULAR VOLUME 96.4 fL (73.0-96.2); MONOCYTES # (AUTO) 0.5 K/uL (2.0-10.0); MONOCYTES % (AUTO) 7.9 % (0.0-11.0); NEUTROPHILS # (AUTO) 4.4 K/uL (1.8-8.9); NEUTROPHILS % (AUTO) 72.7 % (38.5-71.5); PLATELET COUNT (AUTO) 264 K/uL (152-348); RED BLOOD CELL COUNT(AUTO) 3.82 MIL/uL (4.06-5.63); WHITE BLOOD COUNT (AUTO) 6.1 K/uL (3.6-10.2)
[2018-01-01 11:21] VITALS: BP 140/77
[2018-01-01] MEDS: DIVALPROEX SPRINKLE 125 MG CAP.SPRINK PO SCH ×2 (12:12→17:12)
[2018-01-01] MEDS: QUETIAPINE FUMARATE 25 MG TABLET PO SCH ×2 (12:12→17:12)
[2018-01-01 12:26] LABS: CARBON DIOXIDE 23 mmol/L (21-32); CHLORIDE 102 mmol/L (98-107); CREATININE 1.4 mg/dL (0.6-1.3); GLUCOSE 90 mg/dL (74-106); MAGNESIUM 1.9 mg/dL (1.8-2.4); PHOSPHOROUS 2.7 mg/dL (2.5-4.9); POTASSIUM 4.1 mmol/L (3.5-5.1); UREA NITROGEN, BLOOD 44 mg/dL (7-18)
[2018-01-01] MEDS: TRIHEXYPHENIDYL HCL 2 MG TABLET PO SCH ×2 (12:30→17:12)
[2018-01-01] MEDS: MEROPENEM 0.5 G in IV NORMAL SALINE 50 ML IV SCH ×2 (14:21→21:28)
[2018-01-01 15:01] VITALS: BP 152/48
--- NOTE | 2018-01-01 18:43 | NUR ---
Patient stable throughout the shift. With periods of visual hallucinations and would talk to himself. Alert x1, confused. No suicidal ideations noted. T-98.5
--- NOTE | 2018-01-01 20:00 | NUR ---
PATIENT IN SLEEPING EASILY AROUSABLE.TO NAME . CONFUSED .MOVED EXTREMITIES UPPER AND LOWER SLOW AND WEAK . NO RESPIRATORY DISTRESS NOTED BREATHING EVEN AND UNLABORED ON ROOM AIR .HOB UP .NO S/S/ OF PAIN . BED ALARM ON AND ADVISED PATIENT TO CALL FOR HELP /ASSISTANCE CALL LIGHT PLACED WITH IN REACH . INCONTINENT OF BOWEL AND BLADDER CHECKED DIAPER CLEAN AND DRY .
[2018-01-01 20:14] VITALS: BP 118/58
[2018-01-01] MEDS: TAMSULOSIN HCL 0.4 MG CAP.SR.24H PO SCH (20:21)
[2018-01-01] MEDS: SIMVASTATIN 20 MG TABLET PO SCH (20:21)
--- NOTE | 2018-01-01 20:45 | NUR ---
PATIENT SLEEPING AROUSE EASILY ,ALERT TO NAME . CRUSHED MEDICATION AND GIVEN WITH APPLESAUCE .TOLERATED HOB UP AND ASPIRATION PRECAUTION OBSERVED ,
--- NOTE | 2018-01-01 21:30 | NUR ---
DUE ANTIBIOTIC IV -MERREM GIVEN VIA THE LEFT H/L IV ACCES . FLUSHED Q USED PATENT.
--- NOTE | 2018-01-02 00:54 | NUR ---
ROUNDS MADE IN BED SLEEPING NO RESPIRATORY DISTRESS NOTED BREATHING UNLABORED . HOB UP .
[2018-01-02 04:00] VITALS: BP 155/86
[2018-01-02] MEDS: MEROPENEM 0.5 G in IV NORMAL SALINE 50 ML IV SCH ×3 (05:22→21:25)
[2018-01-02 07:04] LABS: BASOPHILS % (AUTO) 0.5 % (0.0-2.0); EOSINOPHILS # (AUTO) 0.1 K/uL (0.0-0.7); EOSINOPHILS % (AUTO) 2.4 % (0.0-7.0); HEMATOCRIT 36.5 % (36.7-47.1); HEMOGLOBIN 12.3 g/dL (12.5-16.3); LYMPHOCYTES # (AUTO) 1.1 K/uL (20.0-40.0); MEAN CORPUSCULAR HEMOGLOBIN 32.9 uug (23.8-33.4); MEAN CORPUSCULAR HGB CONC 34 g/dL (32.5-36.3); MEAN CORPUSCULAR VOLUME 97.6 fL (73.0-96.2); MONOCYTES # (AUTO) 0.5 K/uL (2.0-10.0); MONOCYTES % (AUTO) 7.7 % (0.0-11.0); NEUTROPHILS # (AUTO) 4.4 K/uL (1.8-8.9); NEUTROPHILS % (AUTO) 71.4 % (38.5-71.5); PLATELET COUNT (AUTO) 269 K/uL (152-348); RED BLOOD CELL COUNT(AUTO) 3.75 MIL/uL (4.06-5.63); WHITE BLOOD COUNT (AUTO) 6.1 K/uL (3.6-10.2)
[2018-01-02 07:18] LABS: THYROID STIMULATING HORMONE 0.835 mIU/mL (0.358-3.740)
--- NOTE | 2018-01-02 07:25 | NUR ---
RECEIVED PATIENT ON BED AWAKE, NO ACUTE DISTRESS NOTED. ON CONTACT ISOLATION FOR ESBL/ECOLI IN URINE. IV ACCESS ON LEFT FOREARM #22 INTACT AND PATENT. PER ANABELLA RN, BLISTER NOTED ON RIGHT LOWER THIGH, PICTURE TAKEN AND PUT IN CHART, WOUND CONSULT ORDERED. COMFORT MEASURES PROVIDED. CALL LIGHT WITHIN REACH. WILL CONTINUE TO MONITOR CLOSELY.
[2018-01-02 07:37] LABS: ALANINE AMINOTRANSFERASE 19 U/L (16-63); ALKALINE PHOSPHATASE 75 U/L (50-136); ASPARTATE AMINOTRANSFERASE 12 U/L (15-37); BILIRUBIN,TOTAL 0.8 mg/dL (0.2-1.0); CARBON DIOXIDE 27 mmol/L (21-32); CHLORIDE 107 mmol/L (98-107); CREATININE 1.3 mg/dL (0.6-1.3); GLUCOSE 120 mg/dL (74-106); MAGNESIUM 2.2 mg/dL (1.8-2.4); PHOSPHOROUS 3.1 mg/dL (2.5-4.9); POTASSIUM 3.9 mmol/L (3.5-5.1); TOTAL PROTEIN, SERUM 7.7 g/dL (6.4-8.2); UREA NITROGEN, BLOOD 46 mg/dL (7-18)
[2018-01-02] MEDS: QUETIAPINE FUMARATE 25 MG TABLET PO SCH ×3 (08:15→16:38)
[2018-01-02] MEDS: TRIHEXYPHENIDYL HCL 2 MG TABLET PO SCH ×4 (08:15→17:36)
[2018-01-02] MEDS: ASPIRIN 81 MG TAB.CHEW PO SCH (08:15)
[2018-01-02] MEDS: DIVALPROEX SPRINKLE 125 MG CAP.SPRINK PO SCH ×3 (08:15→16:37)
[2018-01-02] MEDS: ENALAPRIL 10 MG TABLET PO SCH (08:16)
[2018-01-02] MEDS: HYDROCHLOROTHIAZIDE 25 MG TABLET PO SCH (08:16)
[2018-01-02] MEDS: SERTRALINE HCL 50 MG TABLET PO SCH (08:16)
[2018-01-02 11:03] VITALS: BP 147/99
[2018-01-02] MEDS ORDERED: Z GUARD REMEDY PASTE 57 GM TUBE TOP PRN (14:30)
--- NOTE | 2018-01-02 14:37 | NUR ---
WOUND CARE CONSULT: PT PRESENTS WITH RT INNER THIGH PURULENT BLISTER/ABSCESS WHICH IS INTACT. RASH NOTED TO LOWER BUTTOCKS, PERINEUM AND THIGH FOLDS. RECOMMENDATIONS MADE FOR WOUND CARE AND SKIN PROTECTION. DISCUSSED WITH NURSING STAFF. RECOMMEND SURGICAL CONSULT. FIRST STEP LOW AIRLOSS MATTRESS ORDERED. PT NOTED TO HAVE SACRAL BIRTHMARK AND SKIN STAINING TO INNER BUTTOCKS. WILL SEE PRN. DAIGLE IN AGREEMENT WITH PLAN OF CARE. Addendum: 01/02/18 at 1439 by MARI BARR RN Amended: Links added.
[2018-01-02 15:13] VITALS: BP 138/88
[2018-01-02] MEDS: CLOTRIMAZOLE 1% CREAM 30 GM TUBE TOP SCH (16:39)
--- NOTE | 2018-01-02 18:15 | NUR ---
PATIENT IN BED RESTING IN STABLE CONDITION. STILL ON CONTACT ISOLATION FOR ESBL/ECOLI IN URINE. IV ACCESS STILL INTACT AND PATENT. WOUND CONSULT DONE TODAY, RASH IN PERINEAL AREA FOLDS DOCUMENTED AND PICTURE PLACED IN CHART. HEELS FLOATED AND REPOSITIONED Q2 TO PREVENT FURTHER SKIN BREAKDOWN. CALL LIGHT WITHIN REACH
--- NOTE | 2018-01-02 19:20 | NUR ---
Received patient lying in bed. Awake and alert, but non-verbal at this time. Affect flat. Able to make eye contact when spoken to. In no acute distress. VS WNL. IV site on left FA intact and patent. Isolation precaution observe. Safety measure initiated and call ballard within reach.
[2018-01-02 19:46] VITALS: BP 139/72
[2018-01-02] MEDS: SIMVASTATIN 20 MG TABLET PO SCH (20:03)
[2018-01-02] MEDS: TAMSULOSIN HCL 0.4 MG CAP.SR.24H PO SCH (20:03)
[2018-01-02] MEDS: Z GUARD REMEDY PASTE 57 GM TUBE TOP SCH (20:50)
[2018-01-03] MEDS: MEROPENEM 0.5 G in IV NORMAL SALINE 50 ML IV SCH ×3 (05:00→21:44)
[2018-01-03 05:05] VITALS: BP 161/87
[2018-01-03 05:18] VITALS: BP 115/74
--- NOTE | 2018-01-03 06:02 | NUR ---
Patient alert to self only. Mainly confused and disoriented. Affect flat. In no acute distress. No behavioral issues noted. IV site on left FA remains intact and patent. No adverse effect noted from IV ABX. Continue on isolation precaution. Needs assessed and attended to. Safety measure maintained and call ballard within reach.
[2018-01-03] MEDS: SERTRALINE HCL 50 MG TABLET PO SCH (08:01)
[2018-01-03] MEDS: TRIHEXYPHENIDYL HCL 2 MG TABLET PO SCH ×3 (08:01→17:01)
[2018-01-03] MEDS: ENALAPRIL 10 MG TABLET PO SCH (08:01)
[2018-01-03] MEDS: HYDROCHLOROTHIAZIDE 25 MG TABLET PO SCH (08:02)
[2018-01-03] MEDS: ASPIRIN 81 MG TAB.CHEW PO SCH (08:02)
[2018-01-03] MEDS: DIVALPROEX SPRINKLE 125 MG CAP.SPRINK PO SCH ×3 (08:02→17:01)
[2018-01-03] MEDS: QUETIAPINE FUMARATE 25 MG TABLET PO SCH ×3 (08:03→17:01)
[2018-01-03] MEDS: CLOTRIMAZOLE 1% CREAM 30 GM TUBE TOP SCH ×2 (08:03→17:01)
[2018-01-03] MEDS: Z GUARD REMEDY PASTE 57 GM TUBE TOP SCH ×2 (08:04→20:37)
[2018-01-03 11:24] VITALS: BP 167/67
[2018-01-03 16:03] VITALS: BP 143/55
[2018-01-03 20:00] VITALS: BP 136/69
--- NOTE | 2018-01-03 20:00 | NUR ---
RECEIVED PATIENT AWAKE IN BED. ALERT TO SELF. CONFUSED BUT FOLLOWS SIMPLE DIRECTIONS WELL. DENIES PAIN. NO S/S OF PAIN OR DISCOMFORT. NO RESP. DISTRESS NOTED. H/L INTACT AND PATENT. VS WNL. BED ALARM ON. CALL LIGHT IN REACH. ALL NEEDS ATTENDED. WILL CONTINUE TO MONITOR AND ASSESS.
[2018-01-03] MEDS: SIMVASTATIN 20 MG TABLET PO SCH (20:40)
[2018-01-03] MEDS: TAMSULOSIN HCL 0.4 MG CAP.SR.24H PO SCH (20:40)
[2018-01-04] MEDS: MEROPENEM 0.5 G in IV NORMAL SALINE 50 ML IV SCH ×3 (05:22→13:38)
[2018-01-04 06:02] VITALS: BP 141/90
[2018-01-04 07:14] LABS: BASOPHILS % (AUTO) 0.7 % (0.0-2.0); EOSINOPHILS # (AUTO) 0.2 K/uL (0.0-0.7); EOSINOPHILS % (AUTO) 3.1 % (0.0-7.0); HEMATOCRIT 38.6 % (36.7-47.1); HEMOGLOBIN 12.9 g/dL (12.5-16.3); LYMPHOCYTES # (AUTO) 1.2 K/uL (20.0-40.0); LYMPHOCYTES % (AUTO) 20.3 % (20.5-51.5); MEAN CORPUSCULAR HEMOGLOBIN 32.9 uug (23.8-33.4); MEAN CORPUSCULAR HGB CONC 34 g/dL (32.5-36.3); MEAN CORPUSCULAR VOLUME 98.2 fL (73.0-96.2); MONOCYTES # (AUTO) 0.4 K/uL (2.0-10.0); MONOCYTES % (AUTO) 6.8 % (0.0-11.0); NEUTROPHILS # (AUTO) 4.2 K/uL (1.8-8.9); NEUTROPHILS % (AUTO) 69.1 % (38.5-71.5); PLATELET COUNT (AUTO) 254 K/uL (152-348); RED BLOOD CELL COUNT(AUTO) 3.93 MIL/uL (4.06-5.63)
[2018-01-04 07:27] LABS: ALANINE AMINOTRANSFERASE 19 U/L (16-63); ALKALINE PHOSPHATASE 76 U/L (50-136); ASPARTATE AMINOTRANSFERASE 15 U/L (15-37); BILIRUBIN,TOTAL 0.5 mg/dL (0.2-1.0); CHLORIDE 109 mmol/L (98-107); CREATININE 1.4 mg/dL (0.6-1.3); GLUCOSE 134 mg/dL (74-106); MAGNESIUM 2.3 mg/dL (1.8-2.4); PHOSPHOROUS 3.7 mg/dL (2.5-4.9); TOTAL PROTEIN, SERUM 7.9 g/dL (6.4-8.2); UREA NITROGEN, BLOOD 51 mg/dL (7-18)
[2018-01-04 07:41] LABS: CARBON DIOXIDE 31 mmol/L (21-32)
[2018-01-04] MEDS: ASPIRIN 81 MG TAB.CHEW PO SCH (08:04)
[2018-01-04] MEDS: ENALAPRIL 10 MG TABLET PO SCH (08:05)
[2018-01-04] MEDS: QUETIAPINE FUMARATE 25 MG TABLET PO SCH ×3 (08:05→16:59)
[2018-01-04] MEDS: DIVALPROEX SPRINKLE 125 MG CAP.SPRINK PO SCH ×3 (08:05→16:59)
[2018-01-04] MEDS: SERTRALINE HCL 50 MG TABLET PO SCH (08:05)
[2018-01-04] MEDS: TRIHEXYPHENIDYL HCL 2 MG TABLET PO SCH ×2 (08:05→11:51)
[2018-01-04] MEDS: Z GUARD REMEDY PASTE 57 GM TUBE TOP SCH (08:15)
[2018-01-04] MEDS: CLOTRIMAZOLE 1% CREAM 30 GM TUBE TOP SCH ×2 (08:15→17:00)
[2018-01-04 11:41] VITALS: BP 154/92
[2018-01-04] MEDS ORDERED: AMLODIPINE 5 MG TABLET PO SCH (14:30)
[2018-01-04] MEDS ORDERED: MERO500V IV (14:43)
[2018-01-04] MEDS ORDERED: ASCO500C18 PO (14:43)
[2018-01-04] MEDS ORDERED: ACID1TAB4 PO (14:43)
[2018-01-04] MEDS ORDERED: SIMV10TA6 PO (14:43)
[2018-01-04] MEDS ORDERED: TAMS-3 PO (14:43)
[2018-01-04] MEDS ORDERED: ZINC220C8 PO (14:43)
[2018-01-04] MEDS ORDERED: QUET25TA PO (14:43)
[2018-01-04] MEDS ORDERED: ENAL5TAB77 PO (14:43)
[2018-01-04] MEDS ORDERED: HYDR-3326 PO (14:43)
[2018-01-04] MEDS ORDERED: AMLO5TAB4 PO (14:43)
[2018-01-04] MEDS ORDERED: MENT71OI TOP (14:43)
[2018-01-04] MEDS ORDERED: CLOT30CR24 TOP (14:43)
[2018-01-04 15:45] VITALS: BP 90/58
[2018-01-04 16:04] VITALS: BP 101/52
--- NOTE | 2018-01-04 17:37 | NUR ---
d/c orders received noted and carried out,d/c instruction and rn report given to the [facility],pt left the facility via ambulances in stable condition with i/v heplock for i/v antibiotic
== END 2018-01-04 17:40 | DRG 689 ==
LOC: MED 17:44
PROVIDERS: ADMIT Family Medicine; ATTEND Internal Medicine
PROC: 0H9HXZX Drainage of Right Upper Leg Skin, External Approach, Diagnostic (ICD-10-PCS; principal; 2018-01-04)
DX: N39.0 Urinary tract infection, site not specified (principal); N17.0 Acute kidney failure with tubular necrosis; G92 Toxic encephalopathy; D68.59 Other primary thrombophilia; E87.0 Hyperosmolality and hypernatremia; B96.20 Unspecified Escherichia coli [E. coli] as the cause of diseases classified elsewhere; Z16.12 Extended spectrum beta lactamase (ESBL) resistance; S70.321A Blister (nonthermal), right thigh, initial encounter; X58.XXXA Exposure to other specified factors, initial encounter; Y92.89 Other specified places as the place of occurrence of the external cause; B95.62 Methicillin resistant Staphylococcus aureus infection as the cause of diseases classified elsewhere; G31.83 Neurocognitive disorder with Lewy bodies; F02.80 Dementia in other diseases classified elsewhere, unspecified severity, without behavioral disturbance, psychotic disturbance, mood disturbance, and anxiety; D53.9 Nutritional anemia, unspecified; Z74.09 Other reduced mobility; E78.5 Hyperlipidemia, unspecified; I13.10 Hypertensive heart and chronic kidney disease without heart failure, with stage 1 through stage 4 chronic kidney disease, or unspecified chronic kidney disease; N18.9 Chronic kidney disease, unspecified; F32.9 Major depressive disorder, single episode, unspecified; Z86.73 Personal history of transient ischemic attack (TIA), and cerebral infarction without residual deficits; F41.9 Anxiety disorder, unspecified; G47.00 Insomnia, unspecified
CPT/HCPCS: 36415; 71045; 83735; 84100; 84443; 85025; 87070; A4663; J1956; J2185; J3490; J7040; J7050